=== PATIENT | male | born 1950 | race Caucasian/White ===

== ENCOUNTER 2023-12-03 21:12 | Inpatient (IN) | payer OTHER, SELFPAY ==
[2023-12-03 13:34] VITALS: BP 141/87
[2023-12-03 13:50] LABS: % Basophils 0.7 % (0-2); % Eosinophils 2.3 % (0-6); % Immature Granulocytes 0.4 % (0-0.5); % Lymphocytes 16.5 % (20.5-51.1); % Monocytes 13.7 % (1.7-9.3); % Neutrophils 66.4 % (42.2-75.2); Absolute Basophils 0.1 10^3/uL (0-0.2); Absolute Eosinophils 0.2 10^3/uL (0-0.7); Absolute Lymphocytes 1.2 10^3/uL (1.2-3.4); Hematocrit 38.9 % (39.0-52.0); Hemoglobin 13.3 g/dL (13.0-18.0); Mean Corp Hgb Conc. 34.2 g/dL (33.0-37.0); Mean Corpuscular Hgb 28.6 pg (27.0-31.0); Mean Corpuscular Volume 83.7 fL (80.0-94.0); Mean Platelet Volume 8.8 fL (7.4-10.4); Nucleated Red Blood Cells % 0 % (-); Platelet Count 341 10^3/uL (130-400); Red Blood Cell Count 4.65 10^6/uL (4.70-6.10); Red Cell Dist. Width 13.8 % (11.5-14.5); White Blood Cell Count 7.5 10^3/uL (4.8-10.8)
[2023-12-03 14:11] LABS: ALT (SGPT) 27 U/L (0-50); AST (SGOT) 25 U/L (17-59); Albumin 3.6 g/dl (3.5-5.0); Alkaline Phosphatase 67 U/L (38-126); Blood Urea Nitrogen 18 mg/dl (9-20); Calcium 9.4 mg/dl (8.4-10.2); Carbon Dioxide 24 mmol/L (22-30); Chloride 105 mmol/L (98-107); Glucose 106 mg/dl (70-99); Potassium 4.4 mmol/L (3.5-5.1); Sodium 138 mmol/L (135-145); Total Bilirubin 0.6 mg/dl (0.2-1.3); eGFR > 60.00
--- NOTE | 2023-12-03 17:56 | ED.GENMED ---
History of Present Illness
General
Chief Complaint: Skin Problem
Time Seen by Provider: 12/03/23 17:44
Travel History
Have you had any contact with someone who has COVID-19?: No
Do you have any symptoms of coronavirus? Fever > 100 degrees, chills, cough, shortness of breath, sore throat, loss of taste or smell, muscle aches, or headache?: No
History of Present Illness
History of Present Illness:
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 He had a visiting nurse today
that felt as though his redness and wounds look dramatically worse compared to 1 week prior encouraged him to come to the emergency department. He is completely insensate from the T6 level. Denies any fevers or chills. Has not been on any
antibiotics to this point
Past History
Past History
ED Past Medical History: Other (Paraplegia from T6 down, Cellulitis, Decubitis ulcers, UTI's, kidney stones); Negative HTN, Hypercholesterolemia or IDDM
ED Past Surgical History: Urological (Suprapubic cath) and Other (back surgery sacral muscle flap surgery 2ndary to pressure ulcer)
Social History
Tobacco: Non-smoker
Alcohol: Occasional
Personal:
Living: alone
Employment: Retired
Family History
Family History: Other
Review of Systems
Review of Systems
Allergies reviewed?: Yes
All Other Systems: ROS reviewed and negative except as documented in HPI and ROS
Phy Exam
Physical Exam
Physical Exam:
GEN: Well appearing, NAD, WDWN
HEENT: Oral mucosa moist, no scleral icterus
Cardiac: Regular rate
Lung: No respiratory distress, no tachypnea
MSK: Paraplegic, profound erythema extending across bilateral gluteal region, bilateral superficial gluteal ulcerations, scant purulent discharge, no crepitus or palpable fluctuant abscess
Skin: Good color, no pallor or jaundice, no rashes
Neuro: AO x3, moves all extremities freely
Psych: Calm, cooperative
Course
Orders/Labs/Results
Orders:
Orders
12/03/23 13:40
Complete Blood Count/With Diff Urgent
Comprehensive Metabolic Panel Urgent
12/03/23 17:55
CT Pelvis With Iv Contrast Urgent
Comment:
Reason For Exam: gluteal cellulitis, eval for abscess/Nehemiah's
12/03/23 18:07
Lactic Acid Q4H
Comment: CANCEL 2nd LACTIC ACID IF 1st LACTIC ACID IS LESS THAN 2
Blood Culture Q30M
PAULA Source: Blood/Venous
Specimen Description:
12/03/23 18:34
Blood Culture Q30M
PAULA Source: Blood/Venous
Specimen Description:
12/03/23 19:28
Piperacillin/Tazo 3.375 Gram [Zosyn] 3.375 gram in 50 ml IV NOW
12/03/23 20:00
VANCOMYCIN Pharmacy to Dose [VANCOCIN Pharmacy to Dose] 1 each Pharmacy To Prepare [Call Pharmacy To Prepare] 0 ml IV PER PROTOCOL
12/03/23 22:00
Lactic Acid Q4H
Comment: CANCEL 2nd LACTIC ACID IF 1st LACTIC ACID IS LESS THAN 2
Abnormal Lab Results
12/03/23
13:40
RBC 4.65 L 10^6/uL
(4.70-6.10)
Hct 38.9 L %
(39.0-52.0)
Absolute Monos (auto) 1.0 H 10^3/uL
(0.1-0.6)
Lymphocytes % 16.5 L %
(20.5-51.1)
Monocytes % 13.7 H %
(1.7-9.3)
Creatinine 0.4 L mg/dL
(0.7-1.3)
Glucose 106 H mg/dl
(70-99)
12/03/23 13:40
12/03/23 13:40
Vital Signs
Initial and Last Documented VS:
Initial Vital Signs
Temp Pulse Resp BP Pulse Ox
98.0 F 63 16 141/87 98
12/03/23 13:34 12/03/23 13:34 12/03/23 13:34 12/03/23 13:34 12/03/23 13:34
Last Documented Vital Signs
Temp Pulse Resp BP Pulse Ox
98.0 F 63 16 105/76 99
12/03/23 13:34 12/03/23 13:34 12/03/23 13:34 12/03/23 19:00 12/03/23 20:00
MDM/Problems Addressed
MDM/Problems Addressed:
73-year-old male presents with bilateral gluteal cellulitis. Imaging was obtained given that he is insensate at the T6 level and as a result cannot adequately assess for severe pain to suggest necrotizing soft tissue infection. CT shows no
evidence for gas or drainable abscess. He is afebrile with normal white count however due to the extensive nature of the cellulitis and his complex history will admit for IV antibiotics
*Critical Care Note
Total Time (30-74mins, 75-104mins- exclusive of procedures): Not Applicable
ED Attending Note
-
Portions of this chart may have been created with voice recognition software.� Occasional wrong word or��sound alike� substitutions may have occurred due to the inherent limitations of voice recognition software.
Discharge Plan
Departure
Patient Disposition: Admit
Date of Disposition: 12/03/23
Time of Disposition: 20:12
Presentation/result/management discussed w/ accepting MD/DO: Hospitalist
Discharge Problem:
Cellulitis, gluteal
Prescriptions:
No Action
cholecalciferol (vitamin D3) 2,000 UNITS tablet
2,000 units PO DAILY 0RF
omega 4-dsy-gil-fish oil [Fish Oil] 1 EACH capsule
2 cap PO DAILY
vitamin A 8,000 UNIT capsule
8,000 unit PO DAILY
vitamin E (dl, acetate) 100 UNITS capsule
100 units PO DAILY
vitamin B complex Tablet
1 tab PO DAILY
d-mannose 500 mg Capsule
500 mg PO DAILY
ascorbic acid (vitamin C) [Vitamin C] 500 MG tablet
1,000 mg PO BID
Lactobac/Bifidobac [Visbiome]
1 cap PO DAILY Qty: 0 0RF
warfarin 5 mg tablet
7.5 mg PO QPM
Referrals:
NONE,* [Family Provider] -
Interventions
Interventions:
*ED COVID-19 Vaccine History Last Done: 12/03/23 13:34
ED-Skin Assessment Last Done: 12/03/23 17:55
[2023-12-03 18:08] VITALS: BP 128/77
[2023-12-03 18:31] LABS: Lactic Acid 1.2 mmol/L (0.7-2.0)
[2023-12-03 19:00] VITALS: BP 105/76
[2023-12-03] MEDS: ZOSYN 50 IV (19:56)
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
[2023-12-03 21:02] VITALS: BMI 28.0
[2023-12-03] MEDS: COUMADIN 7.5 MG PO (21:12)
[2023-12-03 21:35] LABS: INR 2.12; PT 24.1 Sec (11.4-14.6)
--- NOTE | 2023-12-03 22:39 | PHA.VAN.IN ---
Addendum entered and electronically signed by Talita Allred RPH 12/04/23 09:08:
Vanc 1000mg Q12H provided the following patient-specific PK:
AUC 372
Cmax: 21.5
Cmin: 10.7
ke: 0.0638
half-life: 10.9 H
Vd: 84 L (0.98 L/kg)
Vanc Cl: 89 ml/min
Levels were drawn appropriately; however, patient had infusion issues for night prior to and night of peak. Night of peak, dose was administered late but level times were appropriately adjusted
Vanc 1250mg Q12H predicted AUC 488, peak 27.8, trough 14.2 based on patient specific PK calculations above
Original Note:
Assessment
- Assessment
Renal Function: Appears similar to baseline
Concomitant Antimicrobials: ZOSYN
- Previous Dosing Experience
Previous Regimen: 1250MG IV Q12H
Date of Regimen: 05/01/23
Provided Trough of: 14.2 PREDICTED
Provided AUC of: 488 PREDICTED
Patient's SCR is: Similar to previous dosing experience
Patient's weight is: Elevated compared to previous dosing experience (05/01/23 WT = 86.1 KG)
AUC Dosing Plan
- Dosing Variables
Dosing Weight (kg): 93.5
Dosing CrCl (ml/min): 100
Vd coefficient (L/kg): 0.7
- Empiric Dosing
Initial / Loading Dose: 2GM
Maintenance Regimen: 1250MG IV Q12H
Estimated AUC (mcg*h/mL): 466
Estimated Peak (mcg*h/mL): 29.4
Estimated Trough (mcg/ml): 11.7
Estimated Half Life (H): 7.9
Pharmacokinetics Vancomycin I
- -
Patient Age: 73
Patient Sex: Male
Vancomycin Day #: 1
Indication: Skin And Soft Tissue (GLUTEAL CELLULITIS)
Requesting Provider: MINOO
Pertinent Antimicrobial Allergies:
Allergies
Sulfa (Sulfonamide Antibiotics) Allergy (Verified 12/03/23 13:36)
Rash / Mouth ulcers
levofloxacin [From Levaquin] Allergy (Verified 12/03/23 13:36)
Unknown
sulfamethoxazole Allergy (Verified 12/03/23 13:36)
Rash / Mouth ulcers
trimethoprim Allergy (Verified 12/03/23 13:36)
Unknown
Height / Weight:
Height 6 ft
Actual Weight 93.5 kg
Pertinent Past Medical History: RECURRENT DECUBS
- Vital Signs / Lab Results
Temp Pulse Resp BP Pulse Ox
98.0 F 63 16 105/76 97
12/03/23 13:34 12/03/23 13:34 12/03/23 13:34 12/03/23 19:00 12/03/23 21:00
Lab Results - Hematology
12/03/23
13:40
WBC 7.5
Lab Results - Chemistry
12/03/23
13:40
BUN 18
Creatinine 0.4 L
Albumin 3.6
12/03/23 12/03/23
18:07 22:00
Lactic Acid 1.2 Cancelled
[2023-12-03 23:46] VITALS: BP 110/60
[2023-12-03] MEDS: VANCOCIN 540 MG IV (23:49)
[2023-12-04] MEDS: TYLENOL PO ×6 (00:06→23:53)
[2023-12-04] MEDS: ZOSYN 50 IV ×4 (02:18→19:44)
[2023-12-04 06:25] LABS: % Basophils 0.7 % (0-2); % Eosinophils 5.2 % (0-6); % Immature Granulocytes 0.2 % (0-0.5); % Lymphocytes 30.3 % (20.5-51.1); % Monocytes 16.5 % (1.7-9.3); % Neutrophils 47.1 % (42.2-75.2); Absolute Eosinophils 0.3 10^3/uL (0-0.7); Absolute Lymphocytes 1.8 10^3/uL (1.2-3.4); Absolute Neutrophils 2.7 10^3/uL (1.4-6.5); Hematocrit 38.6 % (39.0-52.0); Hemoglobin 12.6 g/dL (13.0-18.0); Mean Corp Hgb Conc. 32.6 g/dL (33.0-37.0); Mean Corpuscular Hgb 28.7 pg (27.0-31.0); Mean Corpuscular Volume 87.9 fL (80.0-94.0); Mean Platelet Volume 9.2 fL (7.4-10.4); Nucleated Red Blood Cells % 0 % (-); Platelet Count 346 10^3/uL (130-400); Red Blood Cell Count 4.39 10^6/uL (4.70-6.10); Red Cell Dist. Width 13.5 % (11.5-14.5); White Blood Cell Count 5.8 10^3/uL (4.8-10.8)
[2023-12-04 07:09] LABS: Blood Urea Nitrogen 19 mg/dl (9-20); Calcium 9.2 mg/dl (8.4-10.2); Carbon Dioxide 25 mmol/L (22-30); Chloride 104 mmol/L (98-107); Estimated Creatinine Clearance 122 ml/min; Glucose 102 mg/dl (70-99); Potassium 4.5 mmol/L (3.5-5.1); Sodium 137 mmol/L (135-145); eGFR > 60.00
[2023-12-04] MEDS: B COMPLEX w/VITAMIN C 1 CAPLET PO (08:26)
[2023-12-04] MEDS: VISBIOME 1 CAP PO (08:26)
[2023-12-04] MEDS: VITAMIN D3 (cholecalciferol) 50 MCG PO (08:26)
[2023-12-04 08:35] VITALS: BP 107/57
--- NOTE | 2023-12-04 09:04 | PHA.VAN.FU ---
Vancomycin Assessment / Plan
- Assessment
Renal Function: Stable
WBC's are: WNL
In the past 24 hrs, patient has been: Afebrile
Concomitant Antimicrobials: piperacillin/tazobactam
- Dosing Plan
Continue: Vanc 1250mg Q12H
- Monitoring Plan
No level(s) ordered at this time: consider levels in next few days
- Follow Up
Pharmacy will continue to follow.
Vancomycin Follow UP
- -
Patient Age: 73
Patient Sex: Male
Vancomycin Day #: 2
Indication: Skin And Soft Tissue
Requesting Provider: Virginie Diaz
Pertinent Antimicrobial Allergies:
Sulfa (Sulfonamide Antibiotics) - Rash / Mouth ulcers
levofloxacin - Unknown
sulfamethoxazole / trimethoprim - Rash / Mouth ulcers
Height / Weight:
Height 6 ft
Actual Weight 93.5 kg
Pertinent Past Medical History: Paraplegia
- Vital Signs / Lab Results
Temp Pulse Resp BP Pulse Ox
97.6 F 46 16 107/57 91
12/04/23 08:39 12/04/23 00:03 12/03/23 13:34 12/04/23 08:35 12/04/23 01:47
Lab Results - Hematology
12/03/23 12/04/23
13:40 06:09
WBC 7.5 5.8
Lab Results - Chemistry
12/03/23 12/04/23
13:40 06:09
BUN 18 19
Creatinine 0.4 L 0.5 L
Estimated Creat Clear 122
Albumin 3.6
12/03/23 12/03/23
18:07 22:00
Lactic Acid 1.2 Cancelled
--- NOTE | 2023-12-04 10:36 | CM ---
Patient seen at bedside with physician, PT/OT also present. Patient states that he lives in independent living at [place] and is independent with wheelchair and transfers. Per Patient plan is to return to apartment when medically appropriate. CM
will confirm PCP and follow for PT/OT assessment/recommendations. CM will continue to follow for discharge planning needs.
Plan; return to apartment when medically appropriate at [place].
[2023-12-04 10:45] VITALS: BP 107/57; O2SAT 94
--- NOTE | 2023-12-04 11:00 | CON.PS ---
Medical History
-
Chief Complaint: Pressure Sore
History of Present Illness:
73yoM long history of paraplegia with multiply recurrent pressure sores s/p multiple flap reconstructions.
Presents with cellulitis and skin breakdown
Past Medical History
Past Medical History: Other
Past Surgical History: Other
Allergies / Home Medications
Allergy/AdvReac Type Severity Reaction Status Date / Time
levofloxacin [From Levaquin] Allergy Unknown Verified 12/03/23 13:36
Sulfa (Sulfonamide Allergy Rash / Verified 12/03/23 13:36
Antibiotics) Mouth
ulcers
sulfamethoxazole Allergy Rash / Verified 12/03/23 13:36
Mouth
ulcers
trimethoprim Allergy Unknown Verified 12/03/23 13:36
Medication Instructions Recorded Confirmed Type
cholecalciferol (vitamin D3) 50 2,000 units PO DAILY 11/21/21 12/03/23 Rx
mcg (2,000 unit) tablet
omega 2-jld-fmg-fish oil 300 2 cap PO DAILY High cholesterol 12/14/21 12/03/23 History
mg-1,000 mg capsule (Fish Oil)
vitamin A 2,400 mcg capsule 8,000 unit PO DAILY Supplement 01/31/22 12/03/23 History
vitamin E (dl, acetate) 45 mg (100 100 units PO DAILY Supplement 01/31/22 12/03/23 History
unit) capsule
ascorbic acid (vitamin C) 500 mg 1,000 mg PO BID Supplement 04/27/23 12/03/23 History
tablet (Vitamin C)
d-mannose 500 mg capsule 500 mg PO DAILY Supplement 04/27/23 12/03/23 History
vitamin B complex 1 tab PO DAILY Supplement 04/27/23 12/03/23 History
Lactobac/Bifidobac [Visbiome] 1 cap PO DAILY ##0 05/06/23 12/03/23 Rx
warfarin 5 mg tablet 7.5 mg PO QPM 12/03/23 12/03/23 History
Physical Exam
Vital Signs
Temp 97.7 F 12/04/23 15:30
Temp route: Oral 12/04/23 15:30
Pulse 52 12/04/23 15:30
Resp Rate 16 12/04/23 15:30
Blood pressure 110/65 12/04/23 15:30
Blood pressure extremity used: Right upper arm 12/04/23 13:15
Position: Lying 12/04/23 15:30
MAP (cuff-Stepan Monitor) 74 12/04/23 08:35
SaO2 100 12/04/23 15:30
Oxygen Mode of Delivery Room air 12/04/23 15:30
Pulse Ox at Rest 94 12/04/23 11:33
Can the patient verbally communicate their pain? Yes 12/04/23 14:50
Actual Weight 188 lb 6.4 oz 12/04/23 14:46
Body Mass Index (BMI) 25.6 12/04/23 14:46
Supine- Blood Pressure 107/57 12/04/23 11:33
PEx:
NAD
No increased WOB
gluteal skin with multiple scars, excoriated with superficial breakdown and cellulities
No obvious wound to pack, no grossly exposed bone
Lab Results
12/04/23 06:09
12/04/23 06:09
Assessment / Plan
-
73yoM with paraplegia and multiply recurrent pressure ulcers. He is s/p prior flap reconstructions by Drs. Colbert and Avery in the past.
CT scan shows draining sinus from ischial tuberosity.
Jillian wound with associated excoriation and chronic skin changes with a granulating sinus with surrounding cellulitis
Recommend IV abx and local wound care for presumed osteomyelitis. Pack sinus wet to dry. Follow up at wound care center. Surgical optimization would require evidence of improvement with pressure offloading measures, recent A1C, high protein diet and
treatment of underlying osteo.
Reviewed pressure offloading and specifically, no sitting in the wheelchair for prolonged periods due to the location of his wound.
Discussed surgery, which he would like to avoid at this time, considering he has undergone multiple operations. This makes it particulary challenging to employ typical local flap options.
Data Reviewed
-
CT Scan: Image Personally Visualized and interpreted
[2023-12-04 11:33] VITALS: BP 107/57; O2SAT 94
[2023-12-04] MEDS: VITAMIN C PO (11:33)
[2023-12-04] MEDS: VITAMIN E PO (11:33)
--- NOTE | 2023-12-04 11:39 | WOUNDNOTE ---
R BUTTOCK AND RECTUM
--- NOTE | 2023-12-04 11:40 | WOUNDNOTE ---
SACRUM WITH R BUTTOCK WOUND VISIBLE
--- NOTE | 2023-12-04 11:41 | WOUNDNOTE ---
WON RN note: Patient admitted with gluteal cellulitis.
See H&P for complete history. Lives alone at [facility].
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 Colbert, MRSA infection, repeat L
ischial muscle flap surgery by Dr. Colby Varela from [facility] 2016. Covid 19, anemia.
Wound Location and type/assessment: Patient known to service for healing Stage 4 L ischial PI, R ischium stage 3. Last time patient assessed by wound care was 04/30/23, at that time Ischial wounds closed/healed. Now patient presents with redness and
scattered partial thickness openings on L buttocks/ischium. Did not find any tunnel openings, only shallow openings and scarring. CT of Pelvis showed severe gluteal cellulitis with sinus tract extending toward L ischium and inferior pubic ramus. R
ischial/buttock with reopened stage 3 pressure injury, pink base with antony fibrin. Sacrum is intact. Legs and ankles intact, few dry scabs, heels blanchable pink. Colostomy with pink stoma, larger than last seen. Leroy 2 3/4 2 piece appliances
brought to bedside, patient independent in care, no leakage noted.
Appetite: good.
Pressure redistribution devices in place: [employer] Accumax. Patient has a wheelchair with Roho cushion at bedside. Called [facility] for [facility] care air bed, nurse Víctor aware and will switch to new bed when able. Patient aware of bed switch and
is agreeable. Patient can turn self to side, needs help lifting legs. Pillow placed under calves.
Plan: Discussed findings of the above with Dr. Del Real, defer to Dr. White regarding surgery consult. Bilateral ischial wound care done, hospitalist approved wound care. Pressure ulcer prevention measures discussed with patient, states he understands.
Care plan to be updated and will follow as needed.
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
--- NOTE | 2023-12-04 13:07 | PTCARENOTE ---
Report given to [facility] RN, pt sent with all belongings.
[2023-12-04 13:15] VITALS: BP 158/83
--- NOTE | 2023-12-04 14:30 | WOUNDNOTE ---
DANY RN NOTE: Confirmed patient is on a [facility] air bed. Nurse Antoni stated he is going to assist patient in changing Colostomy appliance. Supplies at bedside.
[2023-12-04 14:46] VITALS: BMI 25.6
[2023-12-04 15:30] VITALS: BP 110/65
[2023-12-04] MEDS: COUMADIN 7.5 MG PO (17:18)
[2023-12-04] MEDS: TYLENOL 650 MG PO (19:43)
[2023-12-04] MEDS: VITAMIN C 1000 MG PO (19:44)
[2023-12-04 23:32] VITALS: BP 106/56
[2023-12-05] MEDS: ZOSYN 50 IV ×3 (01:12→14:58)
[2023-12-05] MEDS: TYLENOL PO ×6 (03:54→23:43)
[2023-12-05] MEDS: VISBIOME 1 CAP PO (07:28)
[2023-12-05] MEDS: VITAMIN D3 (cholecalciferol) 50 MCG PO (07:28)
[2023-12-05] MEDS: VITAMIN C 1000 MG PO ×2 (07:28→19:39)
[2023-12-05] MEDS: B COMPLEX w/VITAMIN C 1 CAPLET PO (07:28)
[2023-12-05 07:35] VITALS: BP 111/54
[2023-12-05 07:51] LABS: % Basophils 0.8 % (0-2); % Eosinophils 4.7 % (0-6); % Immature Granulocytes 0.2 % (0-0.5); % Lymphocytes 24.8 % (20.5-51.1); % Monocytes 15.8 % (1.7-9.3); % Neutrophils 53.7 % (42.2-75.2); Absolute Eosinophils 0.3 10^3/uL (0-0.7); Absolute Lymphocytes 1.3 10^3/uL (1.2-3.4); Absolute Monocytes 0.8 10^3/uL (0.1-0.6); Absolute Neutrophils 2.9 10^3/uL (1.4-6.5); Hematocrit 35.4 % (39.0-52.0); Hemoglobin 11.8 g/dL (13.0-18.0); Mean Corp Hgb Conc. 33.3 g/dL (33.0-37.0); Mean Corpuscular Hgb 28.8 pg (27.0-31.0); Mean Corpuscular Volume 86.3 fL (80.0-94.0); Nucleated Red Blood Cells % 0 % (-); Platelet Count 331 10^3/uL (130-400); Red Cell Dist. Width 13.6 % (11.5-14.5); White Blood Cell Count 5.3 10^3/uL (4.8-10.8)
[2023-12-05 08:51] LABS: Blood Urea Nitrogen 18 mg/dl (9-20); Calcium 8.8 mg/dl (8.4-10.2); Carbon Dioxide 27 mmol/L (22-30); Chloride 102 mmol/L (98-107); Estimated Creatinine Clearance 122 ml/min; Glucose 98 mg/dl (70-99); Magnesium 2.3 mg/dl (1.6-2.3); Potassium 4.6 mmol/L (3.5-5.1); Sodium 137 mmol/L (135-145); eGFR > 60.00
--- NOTE | 2023-12-05 09:30 | WOUNDNOTE ---
DANY RN NOTE: Reviewed Dr. Velasquez's note, patient opted out of surgical intervention, local wound care recommended and offloading. Discussed wounds with Dr. Velasquez and in agreement that no open sinus tract visible, suspects is a pinpoint opening
not yet visible. Patient to follow up at [facility]. Approved continuation of adaptic, abd pad and silicone tape.
[2023-12-05] MEDS: VITAMIN E 100 UNITS PO (10:19)
--- NOTE | 2023-12-05 14:18 | CM ---
Patient seen at bedside with physician. Patient states that he plans to return to his apartment at [place] and has had [facility] in the recent past. He would like to restart with them again when he returns home. Patient has his wheelchair and
transfer board in the room and plans to try to transfer again with therapy later today. CM will continue to follow for discharge planning needs.
Plan; return to apartment at [place] with [facility] [place] watch for possible SNF needs
--- NOTE | 2023-12-05 14:43 | CON.ID ---
Consultation
-
Date/Time Consultation Requested: December 05, 2023 1350
Date/Time Consultation Performed: December 05, 2023 1445
Requesting Provider: Dr. Belen Del Real
Performing Provider: Dr. Flavia Navarro
Reason for Consultation: sacral decubitus
Chief Complaint / Past History
Chief Complaint
Left buttock redness and draining wound
History of Present Illness
History obtained from review medical records as well as from the patient. He is a 73-year-old male with paraplegia since 1973, chronic sacral decubitus status post flap in 2015. In November 2021 he was treated with 6 weeks of IV Zosyn for
osteomyelitis. He was rehospitalized in December 2021 status post diverting colostomy, wound swab with E. coli which eventually became resistant to Zosyn, bone biopsy negative for acute osteomyelitis, tissue culture negative, he was treated with 6
weeks of IV ertapenem followed by flap reconstruction at [facility] summer 2021. Per patient the flap failed. In 2022 he underwent flap surgery again at [facility]. He states bone biopsy at that time negative for osteomyelitis. For the past few days he noted
redness at the left buttock flap site with greenish-yellowish drainage. He therefore came to the ER. No fevers or chills. Pelvic CAT scan showed significant cellulitis, and the previously seen chronic sinus tract extending to the left ischial
tuberosity/inferior pubic ramus. He is currently on Zosyn. He reports the drainage has significantly improved since being in the hospital. Of note he was also on vancomycin but developed itchy rash and therefore discontinued. He had tolerated
vancomycin in the past.
Past History
Additional Past Medical History:
T6 spinal cord injury with paraplegia in 1973
Chronic sacral wound and ischial wound s/p diverting colostomy in December 2021
Chronic suprapubic catheter
DVT left lower extremity April 2022, on Coumadin therapy
Allergy History:
levofloxacin [From Levaquin] Allergy (Verified 12/03/23 13:36)
Unknown
Sulfa (Sulfonamide Antibiotics) Allergy (Verified 12/03/23 13:36)
Rash / Mouth ulcers
sulfamethoxazole Allergy (Verified 12/03/23 13:36)
Rash / Mouth ulcers
trimethoprim Allergy (Verified 12/03/23 13:36)
Unknown
Medications Reviewed: Yes
Current Antibiotics:
Zosyn d2
Social History
Tobacco: Non-Smoker
Alcohol: Daily (1 beer)
Drug: None
Living: Alone ([facility])
Family History
Family History: Not Pertinent
Review of Systems
Review of Systems
General: Negative Fever, Chills or Change in Appetite
HEENT: Negative Headache or Pharyngitis
Cardiovascular: Negative Chest Pain
Respiratory: Negative Dyspnea or Cough
Gasteroenterology: Negative Nausea or Vomiting
Genital / Urological: Negative Flank Pain
Endocrine: Negative Weakness
Neurological: Negative Headache or Dizziness
All systems: All other systems were reviewed and were negative
Vital Signs
Temp Pulse Resp BP Pulse Ox
98.2 F 56 18 111/54 97
12/05/23 07:35 12/05/23 07:35 12/05/23 07:35 12/05/23 07:35 12/05/23 07:35
Physical Exam
Physical Exam
Constitutional: No Acute Distress and Comfortable
Cardiovascular: Regular Rate and S1/S2
Pulmonary: Clear
Gastrointestinal: Soft, Non Tender, Non Distended and Normal Bowel Sounds
Genito-Urinary: Clear Urine (suprapubic catheter); Negative CVA Tenderness
Extremities: Edema
Wound: Other (Left ischium flap intact without large/deep wounds/no tunneling, dressing dry. )
Neurological: AO x 3
Lab / Diagnostic Study Results
12/05/23 07:17
12/05/23 07:17
Abs Immat Gran (auto) 0.0 10^3/uL (0-0.05) 12/05/23 07:17
Absolute Neuts (auto) 2.9 10^3/uL (1.4-6.5) 12/05/23 07:17
Absolute Lymphs (auto) 1.3 10^3/uL (1.2-3.4) 12/05/23 07:17
Absolute Monos (auto) 0.8 10^3/uL (0.1-0.6) H 12/05/23 07:17
Absolute Basos (auto) 0.0 10^3/uL (0-0.2) 12/05/23 07:17
Immature Gran % 0.2 % (0-0.5) 12/05/23 07:17
Neutrophils % 53.7 % (42.2-75.2) 12/05/23 07:17
Lymphocytes % 24.8 % (20.5-51.1) 12/05/23 07:17
Monocytes % 15.8 % (1.7-9.3) H 12/05/23 07:17
Eosinophils % 4.7 % (0-6) 12/05/23 07:17
Basophils % 0.8 % (0-2) 12/05/23 07:17
PT 24.1 Sec (11.4-14.6) H 12/03/23 21:09
INR 2.12 12/03/23 21:09
Lactic Acid Cancelled 12/03/23 22:00
Microbiology Results
Micro:
12/03/23 21:30 Wound Culture - Preliminary
Buttock Gram negative bacilli
Gram Stain - Preliminary
12/03/23 18:34 Blood Culture - Preliminary
Blood/Venous No Growth in 24 hours- Final report to follow
12/03/23 18:07 Blood Culture - Preliminary
Blood/Venous No Growth in 24 hours- Final report to follow
12/04/23 16:16 MRSA Screen - Pending
Nose
12/03/[address]: Severe gluteal cellulitis. Large sacral decubitus ulceration with a sinus tract that again extends towards the left ischial tuberosity/inferior pubic ramus, similar to prior. No new drainable fluid collection/abscess. No soft
tissue gas to suggest a necrotizing soft tissue infection.
Assessment / Plan
# Paraplegia with chronic left sacral decubitus s/p 6 weeks of IV abx twice in 2021 followed by flap 2021 (failed) and 2022
# Left ischium flap cellulitis
# CT pelvis shows chronic stable sinus tract to left ischial tuberosity
- Suspect cellulitis over acute osteo.
No deep wounds on exam. Flap is intact.
- Discussed with patient regarding short course abx versus 6 weeks IV abx.
To avoid potential flap breakdown, pt prefers to treat more aggressively with 6 weeks of IV abx.
-Replace Zosyn with Meropenem for now based on prior wound cultures.
[2023-12-05 15:30] VITALS: BP 138/73
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
[2023-12-05] MEDS: COUMADIN 7.5 MG PO (17:07)
[2023-12-05 17:35] VITALS: BMI 25.6
[2023-12-05 23:00] VITALS: BP 101/69
[2023-12-05] MEDS: STERILE WATER FOR INJECTION 10 ML IV (23:34)
[2023-12-05] MEDS: MERREM 500 MG IV (23:41)
[2023-12-06] MEDS: TYLENOL PO ×6 (03:05→23:13)
[2023-12-06] MEDS: STERILE WATER FOR INJECTION 10 ML IV ×4 (05:12→23:16)
[2023-12-06] MEDS: MERREM 500 MG IV ×4 (05:13→23:17)
[2023-12-06 07:30] VITALS: BP 118/63
[2023-12-06 08:37] LABS: % Basophils 0.9 % (0-2); % Eosinophils 4.8 % (0-6); % Immature Granulocytes 0.2 % (0-0.5); % Lymphocytes 25.4 % (20.5-51.1); % Monocytes 16.5 % (1.7-9.3); % Neutrophils 52.2 % (42.2-75.2); Absolute Basophils 0.1 10^3/uL (0-0.2); Absolute Eosinophils 0.3 10^3/uL (0-0.7); Absolute Lymphocytes 1.4 10^3/uL (1.2-3.4); Absolute Monocytes 0.9 10^3/uL (0.1-0.6); Absolute Neutrophils 2.8 10^3/uL (1.4-6.5); Hematocrit 36.5 % (39.0-52.0); Mean Corp Hgb Conc. 32.9 g/dL (33.0-37.0); Mean Corpuscular Volume 88.2 fL (80.0-94.0); Mean Platelet Volume 9.2 fL (7.4-10.4); Nucleated Red Blood Cells % 0 % (-); Platelet Count 315 10^3/uL (130-400); Red Blood Cell Count 4.14 10^6/uL (4.70-6.10); Red Cell Dist. Width 13.6 % (11.5-14.5); White Blood Cell Count 5.4 10^3/uL (4.8-10.8)
[2023-12-06 08:46] LABS: INR 2.83; PT 30.2 Sec (11.4-14.6)
[2023-12-06] MEDS: VITAMIN E 100 UNITS PO (08:47)
[2023-12-06] MEDS: VITAMIN D3 (cholecalciferol) 50 MCG PO (08:47)
[2023-12-06] MEDS: VITAMIN C 1000 MG PO ×2 (08:47→20:03)
[2023-12-06] MEDS: B COMPLEX w/VITAMIN C 1 CAPLET PO (08:47)
[2023-12-06] MEDS: VISBIOME 1 CAP PO (08:47)
[2023-12-06 09:05] LABS: Blood Urea Nitrogen 17 mg/dl (9-20); Calcium 8.8 mg/dl (8.4-10.2); Carbon Dioxide 28 mmol/L (22-30); Chloride 106 mmol/L (98-107); Estimated Creatinine Clearance 122 ml/min; Glucose 92 mg/dl (70-99); Potassium 4.7 mmol/L (3.5-5.1); Sodium 137 mmol/L (135-145); eGFR > 60.00
[2023-12-06 09:24] LABS: Magnesium 2.3 mg/dl (1.6-2.3)
--- NOTE | 2023-12-06 11:01 | W.PN.ID1 ---
Date of Service
Date of Service: December 06, 2023
Today's Communication
Await cx.
Continue meropenem for now.
Assessment / Plan
# Paraplegia with chronic left sacral decubitus s/p 6 weeks of IV abx twice in 2021 followed by flap 2021 (failed) and 2022
# Left ischium flap cellulitis
# CT pelvis shows chronic stable sinus tract to left ischial tuberosity
- Suspect cellulitis over acute osteo.
No deep wounds on exam. Flap is intact.
- Discussed with patient regarding short course abx versus 6 weeks IV abx.
- Awaiting wound cx to guide therapy. Prelim cx: GNR, S. aureus, Group G strep, diphtheroids
-Continue Meropenem for now based on prior wound cultures.
Additional Past Medical History:
T6 spinal cord injury with paraplegia in 1973
Chronic sacral wound and ischial wound s/p diverting colostomy in December 2021, multiple flaps, last on 2022 at [facility]
Chronic suprapubic catheter
DVT left lower extremity April 2022, on Coumadin therapy
Chief Complaint
-: Cellulitis
Subjective / Review of Systems
No new complaints.
Vital Signs / Physical Exam
Vital Signs
Vital Signs
Temp Pulse Resp BP Pulse Ox
97.6 F 63 16 118/63 97
12/06/23 07:30 12/06/23 07:30 12/06/23 07:30 12/06/23 07:30 12/06/23 08:37
Physical Exam
Constitutional: No Acute Distress
Pulmonary: Clear
Gastrointestinal: Non Tender and Non Distended
Neurological: AO x 3
Objective Data
Lab Data
Lab Results
12/06/23 07:26
12/06/23 07:26
PT 30.2 Sec (11.4-14.6) H 02/01/24 07:26
INR 2.83 12/06/23 07:26
Estimated Creat Clear 122 ml/min 12/06/23 07:26
Lactic Acid Cancelled 12/03/23 22:00
Total Bilirubin 0.6 mg/dl (0.2-1.3) 12/03/23 13:40
AST 25 U/L (17-59) 12/03/23 13:40
ALT 27 U/L (0-50) 12/03/23 13:40
Alkaline Phosphatase 67 U/L (38-126) 12/03/23 13:40
Most recent labs reviewed.
Micro Results:
12/03/23 21:30 Wound Culture - Preliminary
Buttock Gram negative bacilli
Staphylococcus aureus
Group G Streptococcus
Gram Stain - Preliminary
12/04/23 16:16 MRSA Screen - Final
Nose No Methicillin Resistant Staphylococcus aureus isolated.
12/03/23 18:34 Blood Culture - Preliminary
Blood/Venous No Growth in 48 hours- Final report to follow
12/03/23 18:07 Blood Culture - Preliminary
Blood/Venous No Growth in 48 hours- Final report to follow
12/03/[address]: Severe gluteal cellulitis. Large sacral decubitus ulceration with a sinus tract that again extends towards the left ischial tuberosity/inferior pubic ramus, similar to prior. No new drainable fluid collection/abscess. No soft
tissue gas to suggest a necrotizing soft tissue infection.
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
--- NOTE | 2023-12-06 14:33 | CM ---
Patient seen at bedside with physician. Patient for possible SNF: [facility] pending confirmation of IV antibiotic program by ID/Hospitalist. CM will continue to follow for discharge planning needs.
Plan; SNF; when medically appropriate, pending ID recommendations
[2023-12-06 15:30] VITALS: BP 150/88
[2023-12-06] MEDS: COUMADIN 7.5 MG PO (17:19)
[2023-12-07 00:02] VITALS: BP 135/74
[2023-12-07] MEDS: TYLENOL PO ×3 (03:04→15:19)
[2023-12-07] MEDS: STERILE WATER FOR INJECTION 10 ML IV ×2 (05:52→12:33)
[2023-12-07] MEDS: MERREM 500 MG IV (05:53)
[2023-12-07 07:25] VITALS: BP 109/69
[2023-12-07] MEDS: B COMPLEX w/VITAMIN C 1 CAPLET PO (09:00)
[2023-12-07] MEDS: TYLENOL 650 MG PO (09:00)
[2023-12-07] MEDS: VITAMIN C 1000 MG PO (09:00)
[2023-12-07] MEDS: VISBIOME 1 CAP PO (09:00)
[2023-12-07] MEDS: VITAMIN E 100 UNITS PO (09:00)
[2023-12-07] MEDS: VITAMIN D3 (cholecalciferol) 50 MCG PO (09:00)
[2023-12-07 09:04] LABS: Hematocrit 40.2 % (39.0-52.0); Mean Corp Hgb Conc. 32.3 g/dL (33.0-37.0); Mean Corpuscular Hgb 28.8 pg (27.0-31.0); Mean Corpuscular Volume 88.9 fL (80.0-94.0); Mean Platelet Volume 9.2 fL (7.4-10.4); Platelet Count 361 10^3/uL (130-400); Red Blood Cell Count 4.52 10^6/uL (4.70-6.10); Red Cell Dist. Width 13.5 % (11.5-14.5); White Blood Cell Count 5.9 10^3/uL (4.8-10.8)
[2023-12-07 09:08] LABS: INR 2.59; PT 27.7 Sec (11.4-14.6)
--- NOTE | 2023-12-07 10:16 | W.PN.ID1 ---
Date of Service
Date of Service: December 07, 2023
Today's Communication
See below.
Assessment / Plan
# Paraplegia with chronic left sacral decubitus s/p 6 weeks of IV abx twice in 2021 followed by flap 2021 (failed) and 2022
# Left ischium flap cellulitis
# CT pelvis shows chronic stable sinus tract to left ischial tuberosity
- Suspect cellulitis over acute osteo.
No deep wounds on exam. Flap is intact.
Per Plastic - may be start of osteomyelitis
- Wound cx: MSSA, Group G strep, Acinetobacter, diphtheroids
- Discussed with patient. Will treat with 6 weeks of IV abx. Patient will also receive better wound care at [facility].
- Narrow meropenem to cefepime 2gIV q12h x 6 weeks through 01/14/24.
- Ordered PICC.
-Follow weekly CBC with diff, CMP, CRP.
#Additional Past Medical History:
T6 spinal cord injury with paraplegia in 1973
Chronic sacral wound and ischial wound s/p diverting colostomy in December 2021, multiple flaps, last on 2022 at [facility]
Chronic suprapubic catheter
DVT left lower extremity April 2022, on Coumadin therapy
Chief Complaint
-: Cellulitis
Subjective / Review of Systems
Doing well.
Vital Signs / Physical Exam
Vital Signs
Vital Signs
Temp Pulse Resp BP Pulse Ox
97.4 F 75 18 109/69 98
12/07/23 07:25 12/07/23 07:25 12/07/23 07:25 12/07/23 07:25 12/07/23 07:25
Physical Exam
Constitutional: No Acute Distress and Comfortable
Pulmonary: Clear
Genito-Urinary: Kay and Clear Urine
Wound: Other (left ischium erythema decreased, no drainage)
Neurological: AO x 3
Objective Data
Lab Data
Lab Results
12/07/23 08:14
12/06/23 07:26
PT 27.7 Sec (11.4-14.6) H 12/07/23 08:14
INR 2.59 12/07/23 08:14
Estimated Creat Clear 122 ml/min 12/06/23 07:26
Lactic Acid Cancelled 12/03/23 22:00
Total Bilirubin 0.6 mg/dl (0.2-1.3) 12/03/23 13:40
AST 25 U/L (17-59) 12/03/23 13:40
ALT 27 U/L (0-50) 12/03/23 13:40
Alkaline Phosphatase 67 U/L (38-126) 12/03/23 13:40
Most recent labs reviewed.
Micro Results:
12/03/23 21:30 Wound Culture - Final
Buttock Acinet. baumannii/haemolyticus
S aureus-Methicillin Sensitive
Group G Streptococcus
Gram Stain - Final
12/03/23 18:34 Blood Culture - Preliminary
Blood/Venous No Growth in 72 hours- Final report to follow
12/03/23 18:07 Blood Culture - Preliminary
Blood/Venous No Growth in 72 hours- Final report to follow
12/04/23 16:16 MRSA Screen - Final
Nose No Methicillin Resistant Staphylococcus aureus isolated.
12/03/[address]: Severe gluteal cellulitis. Large sacral decubitus ulceration with a sinus tract that again extends towards the left ischial tuberosity/inferior pubic ramus, similar to prior. No new drainable fluid collection/abscess. No soft
tissue gas to suggest a necrotizing soft tissue infection.
Care Review
Plan reviewed with: Physician (Dr. Del Real)
--- NOTE | 2023-12-07 11:02 | CM ---
Addendum entered by Kenzie Farris 12/07/23 13:09:
please call report to [phone]/ fax [phone]. [facility] completed and transportation forms to be sent to floor. CM sent IV antibiotic form to SNF. CM will continue to follow for discharge planning needs.
Original Note:
Patient for SNF placement at [facility] for IV antibiotics. spoke with [facility] automobile rental representative and called and left daniela Felix at [facility] to request call and report numbers. CM will continue to follow for discharge planning needs.
Plan; [facility] for IV antibiotics and ambulance transportation due to paraplegia. awaiting auth
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
[2023-12-07] MEDS: MAXIPIME 2000 MG IV (12:33)
--- NOTE | 2023-12-07 14:03 | W.DCSUMMARY ---
Discharge Summary
Discharge Data
Date of Admission: 12/03/23
Date of Discharge: 12/07/23
-
Pending Results: No
Hospital Course
Primary care physician : Vincenzo Carmona
Principal Discharge diagnosis : Gluteal cellulitis with large sacral decubitus ulcer
Chronic Discharge diagnosis : T6 paraplegia, chronic suprapubic catheter, deep venous thrombosis in the left lower extremity in April 2023, history of Wenckebach with ventricular escape beats, obesity due to excess calories
Hospital Course : Patient is a 73-year-old male with worsening redness to a chronic gluteal sacral wound. He had a visiting nurse that sent him to the ED because the wound looked worse compared to a week prior. Patient reported increased redness
and drainage with foul odor. He denied fevers, chills, chest pain, or any other symptoms. He also has no pain as he has no sensation from the T6 spinal cord injury. Patient was admitted.
Problem #1: Gluteal cellulitis with large sacral decubitus ulcer. CAT scan done in the emergency room shows severe gluteal cellulitis with a large sacral decubitus ulcer and sinus tract extending towards the left ischial tuberosity/inferior pubic
ramus patient was admitted and seen in consultation by plastic surgery. There were no plans for any further surgical management. He should follow-up with the wound care center at discharge. He was placed on vancomycin and Zosyn. Vancomycin was
stopped due to possible reaction of having itchiness and hives. ID was consulted and based on the culture which showed methicillin sensitive staphylococcal aureus, group G strep, Acinetobacter and diphtheroids he was changed to meropenem and then
to cefepime. He will complete 6 weeks of IV cefepime through January 14, 2024. PICC line has been ordered. He should follow-up as directed.
Problem #2: All other medical issues. These include T6 paraplegia, chronic suprapubic catheter, deep venous thrombosis in the left lower extremity in April 2023, history of Wenckebach with ventricular escape beats, obesity due to excess calories.
These medical issues were stable during his hospitalization. Medications were continued as able.
Patient is stable for discharge to [facility] given the fact that he needs 6 weeks of IV antibiotics. If there are any questions regarding this dictation or his hospital stay, please not hesitate to call. Our office number is [phone].
Time for discharge 37 minutes.
Important imaging findings :
PELVIS IMPRESSION:
Severe gluteal cellulitis. Large sacral decubitus ulceration with a sinus tract that again extends towards the left ischial tuberosity/inferior pubic ramus, similar to prior. No new drainable fluid collection/abscess. No soft tissue gas to suggest a
necrotizing soft tissue infection.
Discharge Plan
-
Patient Disposition: Long Term/SNF
Discharge Diagnosis/Procedures: Gluteal cellulitis with large sacral decubitus ulcer, T6 paraplegia present on admission, chronic suprapubic catheter present on admission, DVT left lower extremity in April 2023, history of Wenckebach with ventricular
escape beats, obesity due to excess calorie consumption
Condition: Good
Diet: As tolerated and Regular
Activity: As tolerated
Additional Activity: Offload sacral decubitus ulcer/cellulitis as best you can
Driving Restrictions: As prior to admission
Bathing Restrictions: None
Blood Work: Needs weekly CBC with differential, complete metabolic profile, CRP with results to Dr. Navarro-ID
Activity Restrictions/Additional Instructions:
Wound Care Instructions
L buttock/ischium: clean with soap and water, adaptic, ABD pad and silicone tape or silicone foam, change daily and prn soilage
R buttock/ischium: clean with soap and water, cut piece of [place] roll to base of open wound, cover with silicone foam or gauze, change daily and prn soilage.
Frequent turning while in bed
ROHO cushion when sitting in wheelchair, limit sitting for 1-2 hrs a day.
Increase protein in diet
Follow up at wound care center call for an appointment.
Referrals:
Vincenzo Carmona MD [Active] - in less than 1 week
Flavia Navarro MD [Active] - in two to four weeks
Prescriptions:
New
cefepime 2 gram Recon Soln
2,000 mg IV Q12H Qty: 0 0RF
Rx Instructions:
Continue through January 14, 2024
Continued
cholecalciferol (vitamin D3) 2,000 UNITS tablet
2,000 units PO DAILY 0RF
omega 9-wse-gve-fish oil [Fish Oil] 1 EACH capsule
2 cap PO DAILY
vitamin A 8,000 UNIT capsule
8,000 unit PO DAILY
vitamin E (dl, acetate) 100 UNITS capsule
100 units PO DAILY
vitamin B complex Tablet
1 tab PO DAILY
d-mannose 500 mg Capsule
500 mg PO DAILY
ascorbic acid (vitamin C) [Vitamin C] 500 MG tablet
1,000 mg PO BID
Lactobac/Bifidobac [Visbiome]
1 cap PO DAILY Qty: 0 0RF
warfarin 5 mg tablet
7.5 mg PO QPM
Discharge Orders:
Discharge Patient (As Directed); Ordered 12/07/23
Ordered By: Destinee Del Real
[2023-12-07 15:19] VITALS: BP 111/63
[2023-12-07] MEDS: COUMADIN 7.5 MG PO (17:29)
== END 2023-12-07 18:49 | DRG 602 ==
LOC: 4 WEST ACU 21:12
PROVIDERS: Clinical Nurse Specialist Family Health; Emergency Medicine; Physician Assistant; ADMITTING PHYSICIAN Hospitalist; ATTENDING PHYSICIAN Internal Medicine; CONSULT PHYSICIAN Surgery Plastic and Reconstructive Surgery; EMERGENCY PHYSICIAN Emergency Medicine; OTHER PHYSICIAN Internal Medicine Infectious Disease
DX: L03.317 Cellulitis of buttock (principal); L89.154 Pressure ulcer of sacral region, stage 4; L89.313 Pressure ulcer of right buttock, stage 3; L89.324 Pressure ulcer of left buttock, stage 4; G82.20 Paraplegia, unspecified; E66.09 Other obesity due to excess calories; Z66 Do not resuscitate; Z79.01 Long term (current) use of anticoagulants; Z93.59 Other cystostomy status; Z68.25 Body mass index [BMI] 25.0-25.9, adult; Z93.3 Colostomy status
CPT/HCPCS: 71045; 72193; 80048; 80053; 83605; 83735; 85025; 85027; 85610; 87040; 87070; 87077; 87147; 87186; 87205; 96365; 97166; 99285; Q9967

== ENCOUNTER → 2023-12-11 09:39 | Outpatient (REF) | payer OTHER, SELFPAY ==
[2023-12-11 10:27] LABS: % Eosinophils 7.9 % (0-6); % Immature Granulocytes 0.2 % (0-0.5); % Lymphocytes 38.5 % (20.5-51.1); % Neutrophils 39.4 % (42.2-75.2); Absolute Basophils 0.1 10^3/uL (0-0.2); Absolute Eosinophils 0.4 10^3/uL (0-0.7); Absolute Monocytes 0.7 10^3/uL (0.1-0.6); Hematocrit 34.4 % (39.0-52.0); Hemoglobin 11.6 g/dL (13.0-18.0); Mean Corp Hgb Conc. 33.7 g/dL (33.0-37.0); Mean Corpuscular Hgb 28.9 pg (27.0-31.0); Mean Corpuscular Volume 85.6 fL (80.0-94.0); Mean Platelet Volume 9.4 fL (7.4-10.4); Nucleated Red Blood Cells % 0 % (-); Platelet Count 294 10^3/uL (130-400); Red Blood Cell Count 4.02 10^6/uL (4.70-6.10); Red Cell Dist. Width 13.7 % (11.5-14.5); White Blood Cell Count 5.1 10^3/uL (4.8-10.8)
[2023-12-11 10:43] LABS: ALT (SGPT) 26 U/L (0-50); AST (SGOT) 24 U/L (17-59); Albumin 3.3 g/dl (3.5-5.0); Alkaline Phosphatase 69 U/L (38-126); Blood Urea Nitrogen 20 mg/dl (9-20); Calcium 8.6 mg/dl (8.4-10.2); Carbon Dioxide 25 mmol/L (22-30); Chloride 108 mmol/L (98-107); Glucose 90 mg/dl (70-99); Potassium 4.7 mmol/L (3.5-5.1); Sodium 135 mmol/L (135-145); Total Bilirubin 0.4 mg/dl (0.2-1.3); Total Protein 6.4 g/dl (6.3-8.2); eGFR > 60.00
[2023-12-11 10:48] LABS: INR 2.05
== END ==
LOC: OLABWHC 09:39
PROVIDERS: ATTENDING PHYSICIAN Family Medicine
DX: L89.159 Pressure ulcer of sacral region, unspecified stage (principal); L03.317 Cellulitis of buttock; Z79.2 Long term (current) use of antibiotics
CPT/HCPCS: 36415; 80053; 85025; 85610; 86140

== ENCOUNTER → 2023-12-18 09:54 | Outpatient (REF) | payer OTHER, SELFPAY ==
[2023-12-18 11:09] LABS: INR 1.78; PT 20.5 Sec (11.4-14.6)
[2023-12-18 11:40] LABS: ALT (SGPT) 31 U/L (0-50); AST (SGOT) 29 U/L (17-59); Albumin 3.4 g/dl (3.5-5.0); Alkaline Phosphatase 67 U/L (38-126); Blood Urea Nitrogen 20 mg/dl (9-20); Calcium 9.3 mg/dl (8.4-10.2); Carbon Dioxide 25 mmol/L (22-30); Chloride 104 mmol/L (98-107); Glucose 101 mg/dl (70-99); Potassium 4.8 mmol/L (3.5-5.1); Sodium 136 mmol/L (135-145); Total Bilirubin 0.5 mg/dl (0.2-1.3); Total Protein 6.7 g/dl (6.3-8.2); eGFR > 60.00
== END ==
LOC: OLABWHC 09:54
PROVIDERS: ATTENDING PHYSICIAN Family Medicine
DX: I82.402 Acute embolism and thrombosis of unspecified deep veins of left lower extremity (principal); Z79.01 Long term (current) use of anticoagulants
CPT/HCPCS: 36415; 80053; 85610; 86140

== ENCOUNTER → 2023-12-21 08:49 | Outpatient (REF) | payer OTHER, SELFPAY ==
[2023-12-21 09:22] LABS: INR 2.52; PT 27.1 Sec (11.4-14.6)
== END ==
LOC: OLABWHC 08:49
PROVIDERS: ATTENDING PHYSICIAN Family Medicine
DX: I82.402 Acute embolism and thrombosis of unspecified deep veins of left lower extremity (principal); Z79.01 Long term (current) use of anticoagulants
CPT/HCPCS: 36415; 85610

== ENCOUNTER → 2023-12-24 09:52 | Outpatient (REF) | payer OTHER, SELFPAY ==
[2023-12-24 10:21] LABS: % Basophils 0.8 % (0-2); % Eosinophils 5.5 % (0-6); % Immature Granulocytes 0.2 % (0-0.5); % Lymphocytes 32.2 % (20.5-51.1); % Monocytes 13.5 % (1.7-9.3); % Neutrophils 47.8 % (42.2-75.2); Absolute Eosinophils 0.3 10^3/uL (0-0.7); Absolute Lymphocytes 1.6 10^3/uL (1.2-3.4); Absolute Monocytes 0.7 10^3/uL (0.1-0.6); Absolute Neutrophils 2.3 10^3/uL (1.4-6.5); Hematocrit 38.4 % (39.0-52.0); Hemoglobin 12.6 g/dL (13.0-18.0); Mean Corp Hgb Conc. 32.8 g/dL (33.0-37.0); Mean Corpuscular Hgb 28.7 pg (27.0-31.0); Mean Corpuscular Volume 87.5 fL (80.0-94.0); Nucleated Red Blood Cells % 0 % (-); Platelet Count 231 10^3/uL (130-400); Red Blood Cell Count 4.39 10^6/uL (4.70-6.10); Red Cell Dist. Width 14.3 % (11.5-14.5); White Blood Cell Count 4.9 10^3/uL (4.8-10.8)
[2023-12-24 10:32] LABS: ALT (SGPT) 48 U/L (0-50); AST (SGOT) 33 U/L (17-59); Albumin 3.6 g/dl (3.5-5.0); Alkaline Phosphatase 68 U/L (38-126); Blood Urea Nitrogen 23 mg/dl (9-20); Calcium 9.5 mg/dl (8.4-10.2); Carbon Dioxide 26 mmol/L (22-30); Chloride 102 mmol/L (98-107); Glucose 97 mg/dl (70-99); Potassium 4.7 mmol/L (3.5-5.1); Sodium 136 mmol/L (135-145); Total Bilirubin 0.5 mg/dl (0.2-1.3); Total Protein 6.8 g/dl (6.3-8.2); eGFR > 60.00
[2023-12-26 12:47] LABS: CRP, Highly Sensitive 2.66 mg/L
== END ==
LOC: OLABWHC 09:52
PROVIDERS: ATTENDING PHYSICIAN Family Medicine
DX: L89.320 Pressure ulcer of left buttock, unstageable (principal); N31.9 Neuromuscular dysfunction of bladder, unspecified; L03.317 Cellulitis of buttock; D64.9 Anemia, unspecified
CPT/HCPCS: 36415; 80053; 85025; 86141

== ENCOUNTER → 2023-12-28 08:59 | Outpatient (REF) | payer OTHER, SELFPAY ==
[2023-12-28 09:31] LABS: INR 3.45; PT 34.8 Sec (11.4-14.6)
== END ==
LOC: OLABWHC 08:59
PROVIDERS: ATTENDING PHYSICIAN Family Medicine
DX: Z79.01 Long term (current) use of anticoagulants (principal)
CPT/HCPCS: 36415; 85610

== ENCOUNTER → 2023-12-31 10:28 | Outpatient (REF) | payer OTHER, SELFPAY ==
[2023-12-31 12:58] LABS: % Basophils 0.9 % (0-2); % Eosinophils 5.3 % (0-6); % Immature Granulocytes 0.2 % (0-0.5); % Lymphocytes 35.2 % (20.5-51.1); % Monocytes 15.4 % (1.7-9.3); Absolute Basophils 0.1 10^3/uL (0-0.2); Absolute Eosinophils 0.3 10^3/uL (0-0.7); Absolute Lymphocytes 1.9 10^3/uL (1.2-3.4); Absolute Monocytes 0.8 10^3/uL (0.1-0.6); Absolute Neutrophils 2.3 10^3/uL (1.4-6.5); Hematocrit 38.1 % (39.0-52.0); Mean Corp Hgb Conc. 34.1 g/dL (33.0-37.0); Mean Corpuscular Hgb 28.7 pg (27.0-31.0); Mean Corpuscular Volume 84.1 fL (80.0-94.0); Mean Platelet Volume 11.8 fL (7.4-10.4); Nucleated Red Blood Cells % 0 % (-); Platelet Count 202 10^3/uL (130-400); Red Blood Cell Count 4.53 10^6/uL (4.70-6.10); Red Cell Dist. Width 14.6 % (11.5-14.5); White Blood Cell Count 5.3 10^3/uL (4.8-10.8)
[2023-12-31 13:27] LABS: ALT (SGPT) 61 U/L (0-50); AST (SGOT) 40 U/L (17-59); Albumin 3.9 g/dl (3.5-5.0); Alkaline Phosphatase 73 U/L (38-126); Blood Urea Nitrogen 18 mg/dl (9-20); Calcium 9.2 mg/dl (8.4-10.2); Carbon Dioxide 24 mmol/L (22-30); Chloride 106 mmol/L (98-107); Glucose 89 mg/dl (70-99); Potassium 5.4 mmol/L (3.5-5.1); Sodium 136 mmol/L (135-145); Total Bilirubin 0.5 mg/dl (0.2-1.3); Total Protein 7.1 g/dl (6.3-8.2); eGFR > 60.00
== END ==
LOC: OLABWHC 10:28
PROVIDERS: ATTENDING PHYSICIAN Family Medicine
DX: L03.317 Cellulitis of buttock (principal); Z79.2 Long term (current) use of antibiotics; M86.68 Other chronic osteomyelitis, other site; D64.9 Anemia, unspecified
CPT/HCPCS: 36415; 80053; 85025; 86140

== ENCOUNTER → 2024-01-02 09:28 | Outpatient (REF) | payer OTHER, SELFPAY ==
[2024-01-02 10:04] LABS: INR 2.15; PT 24.3 Sec (11.4-14.6)
== END ==
LOC: OLABWHC 09:28
PROVIDERS: ATTENDING PHYSICIAN Family Medicine
DX: Z79.01 Long term (current) use of anticoagulants (principal); I82.402 Acute embolism and thrombosis of unspecified deep veins of left lower extremity
CPT/HCPCS: 36415; 85610

== ENCOUNTER → 2024-01-04 09:01 | Outpatient (REF) | payer OTHER, SELFPAY ==
[2024-01-04 10:14] LABS: INR 2.34; PT 25.6 Sec (11.4-14.6)
== END ==
LOC: OLABWHC 09:01
PROVIDERS: ATTENDING PHYSICIAN Family Medicine
DX: Z79.01 Long term (current) use of anticoagulants (principal); I82.402 Acute embolism and thrombosis of unspecified deep veins of left lower extremity
CPT/HCPCS: 36415; 85610

== ENCOUNTER → 2024-01-07 09:02 | Outpatient (REF) | payer OTHER, SELFPAY ==
[2024-01-07 10:55] LABS: INR 2.63
[2024-01-07 11:00] LABS: ALT (SGPT) 63 U/L (0-50); AST (SGOT) 34 U/L (17-59); Alkaline Phosphatase 69 U/L (38-126); Blood Urea Nitrogen 20 mg/dl (9-20); Calcium 9.2 mg/dl (8.4-10.2); Carbon Dioxide 26 mmol/L (22-30); Chloride 106 mmol/L (98-107); Glucose 92 mg/dl (70-99); Potassium 5.2 mmol/L (3.5-5.1); Sodium 137 mmol/L (135-145); Total Bilirubin 0.5 mg/dl (0.2-1.3); eGFR > 60.00
[2024-01-07 11:10] LABS: % Basophils 0.5 % (0-2); % Eosinophils 5.2 % (0-6); % Immature Granulocytes 0.2 % (0-0.5); % Lymphocytes 33.8 % (20.5-51.1); % Neutrophils 47.3 % (42.2-75.2); Absolute Eosinophils 0.3 10^3/uL (0-0.7); Absolute Lymphocytes 1.9 10^3/uL (1.2-3.4); Absolute Monocytes 0.7 10^3/uL (0.1-0.6); Absolute Neutrophils 2.7 10^3/uL (1.4-6.5); Hematocrit 38.8 % (39.0-52.0); Hemoglobin 12.7 g/dL (13.0-18.0); Mean Corp Hgb Conc. 32.7 g/dL (33.0-37.0); Mean Corpuscular Hgb 28.7 pg (27.0-31.0); Mean Corpuscular Volume 87.6 fL (80.0-94.0); Mean Platelet Volume 10.2 fL (7.4-10.4); Nucleated Red Blood Cells % 0 % (-); Platelet Count 226 10^3/uL (130-400); Red Blood Cell Count 4.43 10^6/uL (4.70-6.10); Red Cell Dist. Width 14.7 % (11.5-14.5); White Blood Cell Count 5.6 10^3/uL (4.8-10.8)
== END ==
LOC: OLABWHC 09:02
PROVIDERS: ATTENDING PHYSICIAN Family Medicine
DX: D64.9 Anemia, unspecified (principal); I82.402 Acute embolism and thrombosis of unspecified deep veins of left lower extremity; I44.1 Atrioventricular block, second degree; L03.317 Cellulitis of buttock; M86.68 Other chronic osteomyelitis, other site; D62 Acute posthemorrhagic anemia
CPT/HCPCS: 36415; 80053; 85025; 85610; 86140

== ENCOUNTER → 2024-01-11 09:05 | Outpatient (REF) | payer OTHER, SELFPAY ==
[2024-01-11 10:39] LABS: INR 2.33; PT 25.5 Sec (11.4-14.6)
== END ==
LOC: OLABWHC 09:05
PROVIDERS: ATTENDING PHYSICIAN Family Medicine
DX: I82.402 Acute embolism and thrombosis of unspecified deep veins of left lower extremity (principal); Z79.01 Long term (current) use of anticoagulants
CPT/HCPCS: 36415; 85610

== ENCOUNTER → 2024-01-14 10:33 | Outpatient (REF) | payer OTHER, SELFPAY ==
[2024-01-14 12:24] LABS: % Basophils 0.5 % (0-2); % Eosinophils 5.7 % (0-6); % Immature Granulocytes 0.2 % (0-0.5); % Lymphocytes 26.8 % (20.5-51.1); % Monocytes 13.3 % (1.7-9.3); % Neutrophils 53.5 % (42.2-75.2); Absolute Eosinophils 0.3 10^3/uL (0-0.7); Absolute Lymphocytes 1.5 10^3/uL (1.2-3.4); Absolute Monocytes 0.8 10^3/uL (0.1-0.6); Hematocrit 37.2 % (39.0-52.0); Hemoglobin 12.4 g/dL (13.0-18.0); Mean Corp Hgb Conc. 33.3 g/dL (33.0-37.0); Mean Corpuscular Hgb 28.9 pg (27.0-31.0); Mean Corpuscular Volume 86.7 fL (80.0-94.0); Mean Platelet Volume 10.4 fL (7.4-10.4); Nucleated Red Blood Cells % 0 % (-); Platelet Count 242 10^3/uL (130-400); Red Blood Cell Count 4.29 10^6/uL (4.70-6.10); Red Cell Dist. Width 14.7 % (11.5-14.5); White Blood Cell Count 5.6 10^3/uL (4.8-10.8)
[2024-01-14 12:38] LABS: ALT (SGPT) 51 U/L (0-50); AST (SGOT) 30 U/L (17-59); Albumin 3.7 g/dl (3.5-5.0); Alkaline Phosphatase 65 U/L (38-126); Blood Urea Nitrogen 26 mg/dl (9-20); Calcium 9.4 mg/dl (8.4-10.2); Carbon Dioxide 25 mmol/L (22-30); Chloride 103 mmol/L (98-107); Glucose 97 mg/dl (70-99); Potassium 4.8 mmol/L (3.5-5.1); Sodium 136 mmol/L (135-145); Total Bilirubin 0.3 mg/dl (0.2-1.3); Total Protein 6.9 g/dl (6.3-8.2); eGFR > 60.00
[2024-01-14 12:45] LABS: C-Reactive Protein < 5.00 mg/L (0.0-10.00)
== END ==
LOC: OLABWHC 10:33
PROVIDERS: ATTENDING PHYSICIAN Family Medicine
DX: D64.9 Anemia, unspecified (principal); Z79.2 Long term (current) use of antibiotics; L03.317 Cellulitis of buttock; L89.313 Pressure ulcer of right buttock, stage 3; L89.320 Pressure ulcer of left buttock, unstageable
CPT/HCPCS: 36415; 80053; 85025; 86140

== ENCOUNTER → 2024-01-17 09:27 | Outpatient (REF) | payer OTHER, SELFPAY ==
[2024-01-17 11:43] LABS: INR 2.67; PT 28.8 Sec (11.4-14.6)
== END ==
LOC: OLABWIL 09:27
PROVIDERS: ATTENDING PHYSICIAN Nurse Practitioner Family
DX: D68.318 Other hemorrhagic disorder due to intrinsic circulating anticoagulants, antibodies, or inhibitors (principal)
CPT/HCPCS: 36415; 85610

== ENCOUNTER → 2024-02-12 13:48 | Outpatient (REF) | payer OTHER, SELFPAY ==
[2024-02-12 14:45] LABS: INR 2.14; PT 24.2 Sec (11.4-14.6)
== END ==
LOC: REG 13:48
PROVIDERS: ATTENDING PHYSICIAN Family Medicine
DX: Z79.01 Long term (current) use of anticoagulants (principal)
CPT/HCPCS: 36415; 85610

== ENCOUNTER → 2024-03-18 09:28 | Outpatient (REF) | payer OTHER, SELFPAY ==
[2024-03-18 10:40] LABS: INR 2.62
== END ==
LOC: OLABWIL 09:28
PROVIDERS: ATTENDING PHYSICIAN Family Medicine
DX: Z79.01 Long term (current) use of anticoagulants (principal)
CPT/HCPCS: 36415; 85610

== ENCOUNTER → 2024-04-15 12:59 | Outpatient (REF) | payer OTHER, SELFPAY ==
[2024-04-15 14:09] LABS: INR 2.45; PT 26.5 Sec (11.4-14.6)
== END ==
LOC: REG 12:59
PROVIDERS: ATTENDING PHYSICIAN Nurse Practitioner Family
DX: Z79.01 Long term (current) use of anticoagulants (principal)
CPT/HCPCS: 36415; 85610

== ENCOUNTER → 2024-05-13 09:23 | Outpatient (REF) | payer OTHER, SELFPAY ==
[2024-05-13 11:40] LABS: INR 2.95; PT 30.7 Sec (11.4-14.6)
== END ==
LOC: OLABWIL 09:23
PROVIDERS: ATTENDING PHYSICIAN Nurse Practitioner Family
DX: Z79.01 Long term (current) use of anticoagulants (principal)
CPT/HCPCS: 36415; 85610

== ENCOUNTER → 2024-06-10 09:24 | Outpatient (REF) | payer OTHER, SELFPAY ==
[2024-06-10 13:48] LABS: INR 2.14; PT 23.8 Sec (11.4-14.6)
== END ==
LOC: OLABWIL 09:24
PROVIDERS: ATTENDING PHYSICIAN Nurse Practitioner Family
DX: Z79.01 Long term (current) use of anticoagulants (principal)
CPT/HCPCS: 36415; 85610

== ENCOUNTER 2024-07-11 17:56 | Observation (INO) | payer OTHER, SELFPAY ==
[2024-07-11] VITALS (8 sets, daily range): BP systolic 105–169; BP diastolic 70–85; BMI 27.2; BMI 26.5
--- NOTE | 2024-07-11 13:15 | ED.GENMED ---
History of Present Illness
General
Chief Complaint: Skin Problem
Source: patient and records
Time Seen by Provider: 07/11/24 13:00
History of Present Illness
History of Present Illness:
74yoM with a history of paraplegia due to a spinal cord injury, DVT on Coumadin, chronic suprapubic catheter, and colostomy status presenting for evaluation of gluteal redness. Symptoms began about 3 weeks ago. He was seen by his PCP at symptom
onset. He was started on a course of Keflex which he took for 5 days without improvement. He went back to his PCP and was prescribed cefdinir x 1 week. He was then seen by colorectal surgery and prescribed a second week of cefdinir. His redness
seemed to improve but he started to develop redness again about 3-4 days ago. He also now has redness on his lower abdomen. He was seen by his visiting nurse today and was advised to go to the ED for evaluation. He denies any fevers or chills. Of
note, patient was hospitalized from 12/03/23-12/07/23 for gluteal cellulitis and he was discharged on 6 weeks of IV cefepime via PICC line.
Past History
Past History
ED Past Medical History: Other (Paraplegia from T6 down, Cellulitis, Decubitis ulcers, UTI's, kidney stones); Negative HTN, Hypercholesterolemia or IDDM
ED Past Surgical History: Urological (Suprapubic cath) and Other (back surgery sacral muscle flap surgery 2ndary to pressure ulcer)
Social History
Tobacco: Non-smoker
Alcohol: Occasional
Personal:
Living: alone
Employment: Retired
Family History
Family History: Other
Phy Exam
General Physical Exam
General Presentation: well appearing and no apparent distress
General Skin: warm and dry
General Habitus: normal and elderly
General Mental: alert
Cardiovascular Exam
Cardiovascular Exam: regular rate/rhythm
Pulmonary Exam
Pulmonary Exam: no respiratory distress
Gastrointestinal Exam
Gastrointestinal Exam: other (Colostomy and suprapubic catheter present)
Skin Exam
Skin Exam: warm/dry and erythema (Erythema noted to perirectal area with external hemorrhoids. There is also erythema present to the suprapubic region. No drainage, fluctuance, or crepitus. )
Psychiatric Exam
Psychiatric Exam: normal mood/affect
Course
Orders/Labs/Results
Orders:
Orders
07/11/24 Breakfast
Regular
At Your Request: Full Participation
Does patient need a safe tray?: No
Liquid Modification: Thin Liquids
07/11/24 13:14
CT Pelvis With Iv Contrast Urgent
Comment:
Reason For Exam: Gluteal and suprapubic cellulitis
07/11/24 13:25
Piperacillin/Tazo 4.5 Gram [Zosyn] 4.5 gram in 100 ml IV NOW
07/11/24 13:46
Complete Blood Count/With Diff Urgent
Comprehensive Metabolic Panel Urgent
Lactate Level [Lactic Acid] Urgent
Prothrombin Time Urgent
Blood Culture Urgent
PAULA Source: Blood/Venous
Specimen Description:
07/11/24 14:23
Blood Culture Routine
PAULA Source: Blood/Venous
Specimen Description:
07/11/24 17:36
Admit/Transfer Patient As Directed
Co-Sign Provider:
Level of Care: Observation services
Assign to:: Telemetry
Physician / Group: Veronica
Diagnosis: Cellulitis
Reason for Telemetry: Arrhythmia
Date to Stop Telemetry: 07/14/24
Time to Stop Telemetry: 11:00
Reason for Hospitalization: IV abx
Expected length of stay greater than two midnights?: Yes
ELOS- Estimated Length of Stay in days: 3
I certify the patient meets the requirements for IP care: Yes
07/11/24 17:39
PRN Pain Medication Management As Directed
May give lesser potent ordered pain med per pt: Yes
preference::
Protocol:: Medication orders for pain may be administered in a
manner that supports deferring to patient preference
when the pt is:
- Requesting an ordered lesser potent pain medication.
Least to most potent pain medications are defined
as: acetaminophen < NSAID < tramadol < opioids
(morphine, oxycodone, hydromorphone).
- Requesting a lesser dose of the same medication IF
ORDERED.
- Requesting a less intrusive route of administration
if both routes are prescribed by the provider (PO <
IV).
07/11/24 17:43
Code Status As Directed
Resuscitation Status: Full Code
07/11/24 18:44
Acetaminophen [Tylenol] 650 mg PO Q4HPRN PRN
07/11/24 18:44
Activity As Directed
Activity Level: Out of Bed- Chair
Vital Signs As Directed
Frequency: Per unit guidelines
Ot Eval And Treat Routine
Pt Eval And Treat Routine
Activity Level: Out of Bed- Ad Nora
07/11/24 19:00
Warfarin [Coumadin] 7.5 mg PO QPM
07/11/24 20:00
Clotrimazole [Lotrimin 1% Cream] See Dose Instructions TOPICAL BID
07/12/24 06:00
Basic Metabolic Panel IN AM
Complete Blood Count/No Diff IN AM
Prothrombin Time IN AM
07/13/24 06:00
Prothrombin Time IN AM
07/14/24 06:00
Prothrombin Time IN AM
07/14/24 11:00
DC Protocol for Telemetry ONCE
Abnormal Lab Results
07/11/24
13:46
RBC 4.44 L 10^6/uL
(4.70-6.10)
Hgb 12.8 L g/dL
(13.0-18.0)
MCHC 32.8 L g/dL
(33.0-37.0)
Absolute Monos (auto) 0.7 H 10^3/uL
(0.1-0.6)
Monocytes % 11.3 H %
(1.7-9.3)
PT 22.1 H Sec
(11.4-14.6)
BUN 22 H mg/dl
(9-20)
Creatinine 0.5 L mg/dL
(0.7-1.3)
Glucose 103 H mg/dl
(70-99)
07/11/24 13:46
07/11/24 13:46
Vital Signs
Initial and Last Documented VS:
Initial Vital Signs
Temp Pulse Resp BP Pulse Ox
97.9 F 58 16 169/85 98
07/11/24 12:37 07/11/24 12:37 07/11/24 12:37 07/11/24 12:37 07/11/24 12:37
Last Documented Vital Signs
Temp Pulse Resp BP Pulse Ox
97.6 F 53 20 141/78 97
07/11/24 18:52 07/11/24 18:52 07/11/24 18:52 07/11/24 18:52 07/11/24 18:52
MDM/Problems Addressed
Differential Diagnosis Includes:
74yoM here with suprapubic and perirectal redness. Gluteal redness has been present x several weeks. Has been on 3 separate courses of abx. Symptoms are recurrent and he now has suprapubic redness. No fevers/chills. Hx of paraplegia. He is non-toxic
appearing with stable vitals. There is erythema noted on exam without crepitus, drainage, or fluctuance. Differential diagnosis includes but is not limited to: cellulitis, tinea infection, NSTI
Initial ED plan: Check CBC, CMP, lactate, blood cultures, and CT pelvis. Will order dose of IV Zosyn.
*Critical Care Note
Total Time (30-74mins, 75-104mins- exclusive of procedures): Not Applicable
Update Note
Update Note:
Labs unremarkable including normal white count and lactate. CT shows cellulitis without any soft tissue gas or any evidence of a deeper infection. Will admit for further management given ongoing symptoms despite multiple rounds of outpatient abx.
ED Attending Note
-
Portions of this chart may have been created with voice recognition software.� Occasional wrong word or��sound alike� substitutions may have occurred due to the inherent limitations of voice recognition software.
Discharge Plan
Departure
Patient Disposition: Admit
Date of Disposition: 07/11/24
Time of Disposition: 16:29
Presentation/result/management discussed w/ accepting MD/DO: Hospitalist
Discharge Problem:
Cellulitis, gluteal
Interventions
Interventions:
*Risk Screen - Suicide Last Done: 07/11/24 12:37
*General Assessment Last Done: 07/11/24 12:37
*Neglect/Abuse Screening Last Done: 07/11/24 12:37
*Nursing Disposition Last Done: 07/11/24 18:44
ED-Skin Assessment Last Done: 07/11/24 13:55
Discharge Date and Time
Discharge Date/Time: 07/11/24 18:44
[2024-07-11 14:00] LABS: % Basophils 0.5 % (0-2); % Eosinophils 2.9 % (0-6); % Immature Granulocytes 0.3 % (0-0.5); % Lymphocytes 22.5 % (20.5-51.1); % Monocytes 11.3 % (1.7-9.3); % Neutrophils 62.5 % (42.2-75.2); Absolute Eosinophils 0.2 10^3/uL (0-0.7); Absolute Lymphocytes 1.4 10^3/uL (1.2-3.4); Absolute Monocytes 0.7 10^3/uL (0.1-0.6); Absolute Neutrophils 3.9 10^3/uL (1.4-6.5); Hemoglobin 12.8 g/dL (13.0-18.0); Mean Corp Hgb Conc. 32.8 g/dL (33.0-37.0); Mean Corpuscular Hgb 28.8 pg (27.0-31.0); Mean Corpuscular Volume 87.8 fL (80.0-94.0); Mean Platelet Volume 9.4 fL (7.4-10.4); Nucleated Red Blood Cells % 0 % (-); Platelet Count 283 10^3/uL (130-400); Red Blood Cell Count 4.44 10^6/uL (4.70-6.10); Red Cell Dist. Width 13.7 % (11.5-14.5); White Blood Cell Count 6.3 10^3/uL (4.8-10.8)
[2024-07-11 14:09] LABS: INR 1.95; PT 22.1 Sec (11.4-14.6)
[2024-07-11 14:14] LABS: Lactic Acid 0.9 mmol/L (0.7-2.0)
[2024-07-11 14:17] LABS: ALT (SGPT) 44 U/L (0-50); AST (SGOT) 29 U/L (17-59); Alkaline Phosphatase 69 U/L (38-126); Blood Urea Nitrogen 22 mg/dl (9-20); Calcium 9.6 mg/dl (8.4-10.2); Carbon Dioxide 23 mmol/L (22-30); Chloride 106 mmol/L (98-107); Estimated Creatinine Clearance 120 ml/min; Glucose 103 mg/dl (70-99); Potassium 4.7 mmol/L (3.5-5.1); Sodium 140 mmol/L (135-145); Total Bilirubin 0.5 mg/dl (0.2-1.3); Total Protein 6.8 g/dl (6.3-8.2); eGFR > 60.00
[2024-07-11] MEDS: ZOSYN 100 IV (14:24)
--- NOTE | 2024-07-11 17:16 | HPS.HSE ---
Family Physician
-
Family Physician: YENIFER Sage
Chief Complaint
-
Gluteal and Suprapubic Redness
History of Present Illness
Patient is 74-year-old male past medical history of paraplegia secondary to a T6 spinal cord injury, neurogenic bladder status post suprapubic tube, prior sacral/ischial wound requiring diverting colostomy, and left lower extremity DVT on
anticoagulation who presents with redness of the gluteal and suprapubic regions. Patient reports he began with gluteal redness about 3 weeks ago. He saw his primary care provider who initially prescribed him a course of Keflex. He took Keflex for
5 days without any improvement, then changed to cefdinir which he took for 1 week. He saw his colorectal surgeon who extended the course of cefdinir for an additional week which she completed over the weekend. He notes significant improvement
while on antibiotics, but symptoms then began to recur. Over the last few days he has noted redness involving the suprapubic area. Due to recurrence of symptoms he was instructed to present to the emergency department for evaluation. He denies
fever, sweats or chills.
Medical History
Past Medical History
Past Medical History: Reports Other
Additional Past Medical History:
Paraplegia due to T6 Spinal Cord Injury in 1973
Neurogenic Bladder s/p Suprapubic Tube
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
LLE DVT April 2022
Intermittent Wenckebach
Past Surgical History: Reports Other
Additional Past Surgical History:
Suprapubic Tube
Diverting Colostomy
Back Surgery
Social History
Tobacco: Non-smoker
Alcohol: Daily (1 beer)
Drug: None
Personal: Single
Living: Alone ([facility])
Family History
Family History: Not pertinent
Allergies / Home Medications
Allergies reflects when Allergies were last updated in [facility].
Home Medications with original date entered in [facility]
Allergy/Medication List:
Allergies
Allergy/AdvReac Type Severity Reaction Status Date / Time
levofloxacin [From Levaquin] Allergy tendinitis/ Verified 07/11/24 12:36
tear
Sulfa (Sulfonamide Allergy Rash / Verified 07/11/24 12:36
Antibiotics) Mouth
ulcers
sulfamethoxazole Allergy Rash / Verified 07/11/24 12:36
Mouth
ulcers
trimethoprim Allergy Unknown Verified 07/11/24 12:36
vancomycin Allergy Rash Verified 07/11/24 12:36
Home Medications
omega 1-mqw-bor-fish oil 300 mg-1,000 mg capsule (Fish Oil) 2 cap PO DAILY High cholesterol 12/14/21
vitamin A 2,400 mcg capsule 8,000 unit PO DAILY Supplement 01/31/22
vitamin E (dl, acetate) 45 mg (100 unit) capsule 100 units PO DAILY Supplement 01/31/22
ascorbic acid (vitamin C) 500 mg tablet (Vitamin C) 1,000 mg PO BID Supplement 04/27/23
d-mannose 500 mg capsule 500 mg PO DAILY Supplement 04/27/23
vitamin B complex 1 tab PO DAILY Supplement 04/27/23
warfarin 5 mg tablet 7.5 mg PO QPM Blood Clot Prevention/Tx 12/03/23
Lactobac no.2-Bifidobac no.1-S. thermo 112.5 billion cell capsule (Visbiome) 1 cap PO DAILY probiotic 07/11/24
cholecalciferol (vitamin D3) 50 mcg (2,000 unit) tablet 2,000 units PO DAILY Supplement 07/11/24
magnesium oxide 400 mg PO DAILY Supplement 07/11/24
Review of Systems
-
A 12 point ROS was completed and negative except as noted: Yes
Constitutional: Denies Fever or Chills
Respiratory: Denies Cough or Trouble Breathing
Cardiac: Denies Chest Pain or Palpitations
Physical Exam
Vital Signs
Vital Signs
Temp Pulse Resp BP Pulse Ox
97.9 F 49 16 140/77 98
07/11/24 12:37 07/11/24 15:45 07/11/24 15:45 07/11/24 15:15 07/11/24 15:45
Physical Exam
General: Comfortable and Conversant
HEENT: NormoCephalic and Anicteric
Respiratory: Clear and Non Labored Respirations
Cardiac: S1/S2, Regular Rhythm and Bradycardia (Occasionally)
GI: Soft, Non Tender and Ostomy
Rectal: Hemorrhoids (Large hemorrhoids with small amount of epithelial breakdown)
Genito-urinary: Suprapubic Tube
Skin: Warm, Dry and Rash (Suprapubic and bilateral groin area are erythematous with satellite lesions noted on bilateral thighs and lower abdomen)
Neuro: Awake, Alert, Oriented and Nonfocal/grossly intact
Psych: Calm
Laboratory Results
-
07/11/24 13:46
07/11/24 13:46
Laboratory Results
PT 22.1 Sec (11.4-14.6) H 07/11/24 13:46
INR 1.95 07/11/24 13:46
Lactic Acid 0.9 mmol/L (0.7-2.0) 07/11/24 13:46
Total Bilirubin 0.5 mg/dl (0.2-1.3) 07/11/24 13:46
AST 29 U/L (17-59) 07/11/24 13:46
ALT 44 U/L (0-50) 07/11/24 13:46
Alkaline Phosphatase 69 U/L (38-126) 07/11/24 13:46
Data Reviewed
-
Lab Data: Labs Reviewed by me
Impression/Plan
-
Suprapubic Cellulitis appears fungal
-Start Clotrimazole cream
-Hold on further antibiotics -Consider restarting if no improvement with fungal treatment
LLE DVT April 2022
-Continue Coumadin
-Monitor INR
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
-Monitor on Telemetry
Paraplegia due to T6 Spinal Cord Injury in 1973
-Wheelchair bound
Neurogenic Bladder s/p Suprapubic Tube
-Suprapubic tube exchanged 07/10 per patient
--- NOTE | 2024-07-11 18:36 | W.PN.UPDATE ---
Update Note
Progress Note Update
This is an addendum to the H&P written by Kemi Espinoza on 07/11/2024. Patient seen and examined independently with PA.
74-year-old male past medical history of T6 spinal cord injury with paraplegia in 1973, chronic sacral wound with sinus tract, ischial wound requiring diverting colostomy in 2021, suprapubic catheter, DVT on Coumadin, presenting with redness of the
gluteal region. This originally started 3 weeks ago and treated with Keflex then cefdinir with improvement.
He reports that the redness did not get worse. He subsequently developed redness in the suprapubic/groin area.
On examination there is erythema surrounding the sacral decubitus sinus tract. No surrounding warmth. No discharge visible. No leukocytosis or fever. Patient was given Zosyn. Will hold off on further antibiotics. Wound care consulted.
There is also tinea cruris likely due to recent antibiotic use. Clotrimazole cream.
--- NOTE | 2024-07-11 18:50 | PTCARENOTE ---
Received pt from ER via stretcher,accompanied by ER staff. Pt AAO x3, moves arms well, pt paraplegic; states no sensation/movement from mid-chest to feet. Pt transferred to bed with assist x4. VSS. Telemetry applied; SB to 30's at times; first
degree AVB. On room air- pulse ox 97%, no SOB noted. Abd obese, soft; colostomy patent soft brown stool; large stoma. SPT to leg bag draining yellow urine. Pt with reddened areas lower abd/perineum; scabbed areas on Lt lower leg. Oriented to
4East, currently resting quietly. Will continue to monitor.
[2024-07-11] MEDS: COUMADIN 7.5 MG PO (19:37)
[2024-07-11] MEDS: LOTRIMIN 1% CREAM 1 APPLIC TOPICAL (19:47)
--- NOTE | 2024-07-11 21:51 | PTCARENOTE ---
Pt has been bradycardic w/ 1st degree block as low in the 30's. Pt is asymptomatic. 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 Will continue w/ tx plan
[2024-07-12] VITALS (8 sets, daily range): BP systolic 93–137; BP diastolic 63–78
[2024-07-12 05:40] LABS: Hematocrit 39.5 % (39.0-52.0); Hemoglobin 13.1 g/dL (13.0-18.0); Mean Corp Hgb Conc. 33.2 g/dL (33.0-37.0); Mean Corpuscular Volume 90.6 fL (80.0-94.0); Mean Platelet Volume 9.7 fL (7.4-10.4); Platelet Count 258 10^3/uL (130-400); Red Blood Cell Count 4.36 10^6/uL (4.70-6.10); Red Cell Dist. Width 13.9 % (11.5-14.5); White Blood Cell Count 5.4 10^3/uL (4.8-10.8)
[2024-07-12 05:43] LABS: INR 1.93; PT 21.9 Sec (11.4-14.6)
[2024-07-12 05:54] LABS: Blood Urea Nitrogen 21 mg/dl (9-20); Calcium 9.5 mg/dl (8.4-10.2); Carbon Dioxide 23 mmol/L (22-30); Chloride 106 mmol/L (98-107); Estimated Creatinine Clearance 120 ml/min; Glucose 98 mg/dl (70-99); Sodium 141 mmol/L (135-145); eGFR > 60.00
[2024-07-12] MEDS: LOTRIMIN 1% CREAM 1 APPLIC TOPICAL ×2 (08:56→20:33)
--- NOTE | 2024-07-12 10:53 | W.PN.HOSP.TC ---
Today's Communication/Plan
-
consult CRS
Assessment / Plan
Assessment / Plan
Large hemorrhoids with ongoing bleeds-seems to be persistent. Patient on anticoagulation with Coumadin with INR of 9.3. History of DVT. Will consult colorectal surgery.
Bilateral groin and lower abdominal rash suspected secondary candidal rash
We will treat him with antifungal and steroid cream. If no improvement will start on oral fluconazole.
-Hold on further antibiotics .
LLE DVT April 2022
-Continue Coumadin
-Monitor INR
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
-Monitor on Telemetry
Paraplegia due to T6 Spinal Cord Injury in 1973
-Wheelchair bound
Neurogenic Bladder s/p Suprapubic Tube
-Suprapubic tube exchanged 07/10 per patient
Anticipated Discharge: > 48 hours
Subjective/Interval History
-
Date of Service: July 12, 2024
Patient states he was sent in by the nurse because of ongoing hemorrhoidal bleeding and rectal discharge and as well as a significant rash in bilateral groins and the lower abdomen.
No fever or chills.
He does not have any rectal pain as he is paraplegic and has no sensation there.
No fever or chills.
Objective Data
-
Labs:
Laboratory Results
07/12/24
04:27
WBC 5.4
Hgb 13.1
Hct 39.5
Plt Count 258
PT 21.9 H
INR 1.93
Sodium 141
Potassium 5.0
Chloride 106
Carbon Dioxide 23
BUN 21 H
Creatinine 0.6 L
Glucose 98
Calcium 9.5
Vital Signs:
Vital Signs
Temp Pulse Resp BP Pulse Ox
97.7 F 58 18 104/65 95
07/12/24 08:09 07/12/24 08:09 07/12/24 08:09 07/12/24 08:09 07/12/24 08:09
I&O
07/11/24 07/12/24 07/13/24
06:59 06:59 06:59
Intake Total 120 / 120
Output Total 1700 / 1700 350 / 350
Balance -1580 / -1580 -350 / -350
Review of Systems
-
Respiratory: Denies Trouble Breathing
Cardiac: Denies Chest Pain
Abdomen/GI: Denies Abdominal Pain, Nausea or Vomiting
Neuro: Denies Dizzy
Physical Exam
-
General: No Apparent Distress
HEENT: Moist Mucous Membranes
Respiratory: Non Labored Respirations; Negative Accessory Resp Muscle Use
Cardiac: Regular Rhythm and S1/S2
GI: Soft, Nontender, Normal Bowel Sounds, Ostomy and Other (Bilateral groin and lower abdomen cutaneous candidiasis)
Rectal: Hemorrhoids (large bleeding hemorrhoids)
Neuro: AO x 3; Negative No Motor Deficits (paraplegia)
Psych: Calm
Data Reviewed
-
Labs: Labs Reviewed by me
[2024-07-12] MEDS: VISBIOME 1 CAP PO (13:05)
--- NOTE | 2024-07-12 14:35 | CON.CRS ---
Medical History
-
Chief Complaint: bleeding hemorrhoids
History of Present Illness:
74 yo male with a h/o paraplegia after t6 spinal injury in 1973, neurogenic bladder managed with chronic SPT, ischial/sacral decubs with debridements and diverting colostomy creation in December 2021, and a LLE dvt in May 2022 now on chronic
warfarin who presents with gluteal redness and local irritation to the abdomen and pubic area for which he was on outpatient antibiotics for about 2 weeks from his PCP without much benefit. He is seen today in consult for rectal bleeding. He was
recently seen in the outpatient setting by Dr Fowler on 06/26/24 for evaluation of hemorrhoids with rectal prolapse noted at that time as well as well as stage 2 decubitus sacral ulcer. He was provided with hydrocortisone cream at that time for
symptomatic relief with improvement noted today on exam.
Past Medical History
Past Medical History: Arrhythmias (Mobitz 1 Block) and Other (Paraplegia due to T6 Spinal Cord Injury in 1973, Neurogenic Bladder s/p Suprapubic Tube Chronic, Sacral / Ischial wound requiring diverting colostomy in December 2021, LLE DVT April 2022
on warfarin)
Past Surgical History: Orthopedic (spinal), Urological (SPT) and Other (Diverting Colostomy 12/[address] Tabares, Left Ischial Wound debridements by Dr. Colbert)
Social History
Tobacco: Non-Smoker
Alcohol: Daily (beer)
Living: Other ([facility])
Family History
Family History: Reviewed & Not Pertinent
Allergies / Home Medications
Allergy/AdvReac Type Severity Reaction Status Date / Time
levofloxacin [From Levaquin] Allergy tendinitis/ Verified 07/11/24 12:36
tear
Sulfa (Sulfonamide Allergy Rash / Verified 07/11/24 12:36
Antibiotics) Mouth
ulcers
sulfamethoxazole Allergy Rash / Verified 07/11/24 12:36
Mouth
ulcers
trimethoprim Allergy Unknown Verified 07/11/24 12:36
vancomycin Allergy Rash Verified 07/11/24 12:36
�Medication �Instructions �Recorded �Confirmed �Type
omega 6-ras-uek-fish oil 300 2 cap PO DAILY High cholesterol 12/14/21 07/11/24 History
mg-1,000 mg capsule (Fish Oil)
vitamin A 2,400 mcg capsule 8,000 unit PO DAILY Supplement 01/31/22 07/11/24 History
vitamin E (dl, acetate) 45 mg (100 100 units PO DAILY Supplement 01/31/22 07/11/24 History
unit) capsule
ascorbic acid (vitamin C) 500 mg 1,000 mg PO BID Supplement 04/27/23 07/11/24 History
tablet (Vitamin C)
d-mannose 500 mg capsule 500 mg PO DAILY Supplement 04/27/23 07/11/24 History
vitamin B complex 1 tab PO DAILY Supplement 04/27/23 07/11/24 History
warfarin 5 mg tablet 7.5 mg PO QPM Blood Clot 12/03/23 07/11/24 History
Prevention/Tx
Lactobac no.2-Bifidobac no.1-S. 1 cap PO DAILY probiotic 07/11/24 07/11/24 History
thermo 112.5 billion cell capsule
(Visbiome)
cholecalciferol (vitamin D3) 50 2,000 units PO DAILY Supplement 07/11/24 07/11/24 History
mcg (2,000 unit) tablet
magnesium oxide 400 mg PO DAILY Supplement 07/11/24 07/11/24 History
Review of Systems
-
History Source: Patient
All other systems: Negative unless noted
A 10 point review of systems was completed, and was negative except as per HPI.
Physical Exam
Vital Signs
Temp 98 F 07/12/24 12:01
Pulse 55 07/12/24 12:01
Resp Rate 18 07/12/24 12:01
Blood pressure 133/78 07/12/24 12:01
SaO2 95 07/12/24 13:42
07/11/24 07/12/24 07/13/24
06:59 06:59 06:59
Actual Weight 88.621 kg
Body Mass Index (BMI) 26.5
Lab Results / Allergies
07/12/24 04:27
07/12/24 04:27
WBC 5.4 10^3/uL (4.8-10.8) 07/12/24 04:27
Hgb 13.1 g/dL (13.0-18.0) 07/12/24 04:27
Hct 39.5 % (39.0-52.0) 07/12/24 04:27
Plt Count 258 10^3/uL (130-400) 07/12/24 04:27
Abs Immat Gran (auto) 0.0 10^3/uL (0-0.05) 07/11/24 13:46
Neutrophils % 62.5 % (42.2-75.2) 07/11/24 13:46
Allergy/AdvReac Type Severity Reaction Status Date / Time
levofloxacin [From Levaquin] Allergy tendinitis/ Verified 07/11/24 12:36
tear
Sulfa (Sulfonamide Allergy Rash / Verified 07/11/24 12:36
Antibiotics) Mouth
ulcers
sulfamethoxazole Allergy Rash / Verified 07/11/24 12:36
Mouth
ulcers
trimethoprim Allergy Unknown Verified 07/11/24 12:36
vancomycin Allergy Rash Verified 07/11/24 12:36
Physical Exam
General: No Apparent Distress
HEENT: Moist Mucous Membranes
GI: Soft, Non Tender, Non Distended and Other (stoma pink/viable, appliance with stool/flatus)
Rectal: Hemorrhoids (prolapsed internal hemorrhoids with minimal oozing present)
Genito-urinary: Other (SPT with clear yellow urine )
Skin: Warm, Dry and Other (Sacral stage 2 decubitus, tinea corporis from around the level of the naval down to the pelvis and perineum and around to the buttocks )
Neuro: Awake, Alert and AO x 3
Psych: Calm
Data Reviewed
-
CT Scan: Image Personally Visualized and interpreted, Report Reviewed by me, Discussed with Physician and Discussed with Patient
Labs: Labs Reviewed by me, Discussed with Physician and Discussed with Patient
Old Records: Reviewed
Assessment / Plan
-
74 yo male with h/o T6 spinal injury and paraplegia, neurogenic bladder managed with chronic SPT, ischial/sacral decubs with local debridements as well as a diverting colostomy creation in December 2021 with LLE dvt in May 2022 now on chronic
warfarin admitted for management of tinea corporis to the abdomen/peritoneum/buttocks seen in consult today for evaluation of bleeding hemorrhoids. No leukocytosis, hemoglobin is stable. AFVSS. Hemorrhoids improved since last exam on 06/26/24.
--Start Anusol suppository BID with hydrocortisone cream externally to exposed hemorrhoids BID as well
--Coumadin on hold for tonight, ok to resume tomorrow if improvement noted
--Trend CBC
--Medical management of large fungal rash as per primary team with topical agents: consider IV fluconazole given the extent of the rash
--Wound care consult
[2024-07-12] MEDS: ANUSOL HC 25 MG RECTAL (20:32)
[2024-07-12] MEDS: DIPROSONE CREAM 0.05% 1 APPLIC TOPICAL (20:33)
[2024-07-12] MEDS: HYDROCORTISONE 2.5% CREAM 1 APPLIC TOPICAL (20:33)
[2024-07-13 03:09] VITALS: BP 132/73
[2024-07-13 07:02] LABS: Hematocrit 40.6 % (39.0-52.0); Hemoglobin 13.5 g/dL (13.0-18.0); Mean Corp Hgb Conc. 33.3 g/dL (33.0-37.0); Mean Corpuscular Hgb 29.3 pg (27.0-31.0); Mean Corpuscular Volume 88.3 fL (80.0-94.0); Mean Platelet Volume 9.5 fL (7.4-10.4); Platelet Count 289 10^3/uL (130-400); Red Cell Dist. Width 13.8 % (11.5-14.5); White Blood Cell Count 6.9 10^3/uL (4.8-10.8)
[2024-07-13 07:08] LABS: INR 1.92; PT 21.8 Sec (11.4-14.6)
[2024-07-13 07:55] VITALS: BP 103/63
[2024-07-13] MEDS: VITAMIN D3 (cholecalciferol) 50 MCG PO (08:42)
[2024-07-13] MEDS: MAGNESIUM OXIDE 500 MG PO (08:42)
[2024-07-13] MEDS: VISBIOME 1 CAP PO (08:42)
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
--- NOTE | 2024-07-13 09:20 | W.PN.HOSP.TC ---
Addendum entered and electronically signed by Beka Celis MD 07/13/24 13:53:
QTc is ok
Sinus grecia with PAC noted. Pt with normal EF ; he had Holter end of last year -noted to have sinus grecia ,PAC and PVCs then .No pauses or syncope.
Original Note:
Today's Communication/Plan
-
DC planning
Assessment / Plan
Assessment / Plan
Large hemorrhoids with bleeding-None today . Seems to be related to chaffing from tranfer board use. HH remains stable. seen by colorectal surgery who recommended steroid cream and suppository. Coumadin was kept on hold yesterday.
Patient on anticoagulation with Coumadin with INR of 1.9. History of DVT. If no plan for surgery will resume AC. Pt preferred Warfarin over DOAC. Gettings monthly INR at his facility
Bilateral groin and lower abdominal rash suspected secondary candidal rash
started antifungal and steroid cream.
Since the majority of the candidal rash is center in the fold around SPT will add 7 day of oral fluconazole as well. Check EKG. Follow INR closely while on it.
LLE DVT April 2022
-Resume Coumadin-No plans for surgery
-Monitor INR
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
-Monitor on Telemetry
Paraplegia due to T6 Spinal Cord Injury in 1973
-Wheelchair bound
Neurogenic Bladder s/p Suprapubic Tube
-Suprapubic tube exchanged 07/10 per patient
DC if no plans for any surgical interventions
Anticipated Discharge: Today
Subjective/Interval History
-
Date of Service: July 13, 2024
No further hemorrhoidal bleeding noted.
Objective Data
-
Labs:
Laboratory Results
07/13/24
05:50
WBC 6.9
Hgb 13.5
Hct 40.6
Plt Count 289
PT 21.8 H
INR 1.92
Vital Signs:
Vital Signs
Temp Pulse Resp BP Pulse Ox
97.8 F 62 14 103/63 96
07/13/24 07:55 07/13/24 07:55 07/13/24 07:55 07/13/24 07:55 07/13/24 07:55
I&O
07/12/24 07/13/24 07/14/24
06:59 06:59 06:59
Intake Total 120 / 120 1560 / 1560
Output Total 1700 / 1700 3175 / 3175
Balance -1580 / -1580 -1615 / -1615
Review of Systems
-
Constitutional: Denies Fever
Respiratory: Denies Trouble Breathing
Cardiac: Denies Chest Pain
Abdomen/GI: Denies Abdominal Pain, Nausea or Vomiting
Neuro: Denies Dizzy
Physical Exam
-
General: Comfortable
Respiratory: Non Labored Respirations; Negative Accessory Resp Muscle Use
Cardiac: Regular Rhythm and S1/S2
GI: Soft
Neuro: AO x 3; Negative No Motor Deficits (paraplegia)
Psych: Calm; Negative Confused
Data Reviewed
-
Labs: Labs Reviewed by me
[2024-07-13] MEDS: ANUSOL HC 25 MG RECTAL ×2 (09:21→19:58)
[2024-07-13] MEDS: DIPROSONE CREAM 0.05% 1 APPLIC TOPICAL ×2 (09:21→19:59)
[2024-07-13] MEDS: LOTRIMIN 1% CREAM 1 APPLIC TOPICAL ×2 (09:22→20:00)
[2024-07-13] MEDS: HYDROCORTISONE 2.5% CREAM 1 APPLIC TOPICAL ×2 (09:22→19:59)
--- NOTE | 2024-07-13 10:57 | CM ---
Addendum entered by Kenzie Farris 07/13/24 16:05:
patient unable to access wheelchair van or transportation from [place]. physician updated and plan for discharge tomorrow.
Addendum entered by Kenzie Farris 07/13/24 14:02:
requested consult for VN from Physician.
Addendum entered by Kenzie Farris 07/13/24 14:01:
patient will have [facility], referral sent and accepted please fax to [phone].
Original Note:
Patient seen at bedside. Patient stated he recognized CM. Patient reviewed OBS/MATA status form and signed form placed on chart. Patient states that he lives in independent living at [place] and is independent with wheelchair and transfers. Per
Patient plan is to return to apartment when medically appropriate. CM will confirm PCP and follow for PT/OT assessment/recommendations. CM will continue to follow for discharge planning needs.
Plan; return to apartment when medically appropriate at [place]. watch for possible VN needs.
[2024-07-13 11:11] VITALS: BP 109/61
--- NOTE | 2024-07-13 13:50 | W.DS.TRANS ---
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
-
Discharge Instructions:
Discharge Diagnosis/Procedures Hemorrhoidal bleeding; large area of candidal
rash in the groin and the lower abdomen
Diet Regular
Activity As tolerated
Driving Restrictions As prior to admission
Blood Work INR mid next week on sunday
Instructions:
Stand-Alone Forms:
Changes to Home Medications: Yes
Discharge Medications:
DC Medications w/original date entered in [facility]
omega 0-omg-ors-fish oil 300 mg-1,000 mg capsule (Fish Oil) 2 cap PO DAILY High cholesterol 12/14/21
vitamin A 2,400 mcg capsule 8,000 unit PO DAILY Supplement 01/31/22
vitamin E (dl, acetate) 45 mg (100 unit) capsule 100 units PO DAILY Supplement 01/31/22
ascorbic acid (vitamin C) 500 mg tablet (Vitamin C) 1,000 mg PO BID Supplement 04/27/23
d-mannose 500 mg capsule 500 mg PO DAILY Supplement 04/27/23
vitamin B complex 1 tab PO DAILY Supplement 04/27/23
warfarin 5 mg tablet 7.5 mg PO QPM Blood Clot Prevention/Tx 12/03/23
Lactobac no.2-Bifidobac no.1-S. thermo 112.5 billion cell capsule (Visbiome) 1 cap PO DAILY probiotic 07/11/24
cholecalciferol (vitamin D3) 50 mcg (2,000 unit) tablet 2,000 units PO DAILY Supplement 07/11/24
magnesium oxide 400 mg PO DAILY Supplement 07/11/24
clotrimazole 1 % topical cream (Athlete's Foot (clotrimazole)) 1 applic topical BID #30 grams 07/13/24
fluconazole 100 mg tablet 100 mg PO DAILY #6 tabs 07/13/24
hydrocortisone 2.5 % topical cream 1 applic topical BID #20 grams 07/13/24
hydrocortisone acetate 25 mg rectal suppository 25 mg [place] BID #10 ea 07/13/24
Home Medication Changes
new medication-Anusol, fluconazole, clotrimazole topical cream
Pending Results: No
--- NOTE | 2024-07-13 13:57 | W.DCSUMMARY ---
Discharge Summary
Discharge Data
Date of Admission: 07/11/24
Date of Discharge: 07/13/24
-
Pending Results: No
Hospital Course
primary diagnosis:
Large hemorrhoids with bleeding
Bilateral groin and lower abdominal rash suspected secondary candidal rash
Secondary diagnosis:
History of deep and thrombosis in 2021
Paraplegia secondary to T6 spinal cord injury 1973
Neurogenic bladder status post appropriate catheter
Diverting colostomy
Hospital course:
patient came in because of hemorrhoidal bleed and extensive rash in the groins and the lower abdomen.
Patient has paraplegia and wheelchair-bound. He does his own transfers. He has been dealing with hemorrhoids and was following with colorectal surgery. He had more bleeding before presentation and also the visiting nurse was concerned about the
extensive rash.
He has a large hemorrhoids but no thrombosis. His bleeding was intermittent especially noted during the transfers on the transfer board which i suspect is sec to chafing during transfers. Was seen by colorectal surgery who recommended steroid
suppositories and topical steroid cream and but no surgical intervention. His INR 1.93.
his rash was extensive including bilateral groins and the lower abdomen, it was scaly and clinically looking like cutaneous candidiasis. Because the area is large and involves around the suprapubic tube ,concerned about chance of candidal bladder
infection; he was not only put on topicals but also given a week of fluconazole for treatments. QTc was ok.
Consultants on board:
Colorectal surgery-Ty Jean
Discharge Plan
-
Patient Disposition: Assisted Living
Discharge Diagnosis/Procedures: Hemorrhoidal bleeding; large area of candidal rash in the groin and the lower abdomen
Diet: Regular
Activity: As tolerated
Driving Restrictions: As prior to admission
Blood Work: INR mid next week on sunday
Referrals:
Elías Tabares MD [Active] - in three to four weeks
Leyla Patel CRNP [Family Provider] - in less than 1 week
Prescriptions:
New
hydrocortisone acetate 25 mg Suppository
25 mg [place] BID Qty: 10 0RF
hydrocortisone 2.5 % Cream
1 applic topical BID Qty: 20 0RF
Rx Instructions:
To hemorrhoids
clotrimazole [Athlete's Foot (clotrimazole)] 1 % Cream
1 applic topical BID Qty: 30 0RF
Rx Instructions:
BL groin and lower abdomen area for a week
fluconazole 100 mg tablet
100 mg PO DAILY Qty: 6 0RF
Continued
omega 9-yvp-zvn-fish oil [Fish Oil] 1 EACH capsule
2 cap PO DAILY
vitamin A 8,000 UNIT capsule
8,000 unit PO DAILY
vitamin E (dl, acetate) 100 UNITS capsule
100 units PO DAILY
vitamin B complex Tablet
1 tab PO DAILY
d-mannose 500 mg Capsule
500 mg PO DAILY
ascorbic acid (vitamin C) [Vitamin C] 500 MG tablet
1,000 mg PO BID
warfarin 5 mg tablet
7.5 mg PO QPM
Visbiome 112.5 billion cell Capsule
1 cap PO DAILY
magnesium oxide 400 mg magnesium Tablet
400 mg PO DAILY
cholecalciferol (vitamin D3) 2,000 UNITS tablet
2,000 units PO DAILY
Discharge Orders:
Discharge Patient (As Directed); Ordered 07/13/24
Ordered By: Beka Celis
Discharge Date and Time
Print Language: OCCITAN
[2024-07-13 15:00] VITALS: BP 153/80
[2024-07-13] MEDS: DIFLUCAN 200 MG PO (15:39)
[2024-07-13] MEDS: COUMADIN 7.5 MG PO (18:57)
[2024-07-13 19:04] VITALS: BP 115/72
[2024-07-13 23:11] VITALS: BP 105/62
[2024-07-14 03:16] VITALS: BP 110/66
[2024-07-14 07:30] VITALS: BP 139/81
[2024-07-14 07:49] LABS: INR 1.79; PT 20.7 Sec (11.4-14.6)
[2024-07-14] MEDS: VISBIOME 1 CAP PO (07:54)
[2024-07-14] MEDS: MAGNESIUM OXIDE 500 MG PO (07:54)
[2024-07-14] MEDS: VITAMIN D3 (cholecalciferol) 50 MCG PO (07:54)
[2024-07-14] MEDS: ANUSOL HC 25 MG RECTAL (09:07)
[2024-07-14] MEDS: LOTRIMIN 1% CREAM 1 APPLIC TOPICAL (09:08)
[2024-07-14] MEDS: HYDROCORTISONE 2.5% CREAM 1 APPLIC TOPICAL (09:08)
[2024-07-14] MEDS: DIPROSONE CREAM 0.05% 1 APPLIC TOPICAL (09:09)
--- NOTE | 2024-07-14 10:43 | CM ---
MD entered order for discharge.
Spoke with pt he said that he will tell his family he is discharged.
Pt said he has set up a ride from [place] to take him back today.
Spoke with Etta from [facility] she accepted pt for VN resumption.
PLAN Return to Independent living at [place] with [facility] VN fax [phone]
== END 2024-07-14 12:19 | disposition home health service (06) ==
LOC: 4 EAST ACU 17:56
PROVIDERS: Physician Assistant; Physician Assistant Medical; Registered Nurse; ADMITTING PHYSICIAN Hospitalist; ATTENDING PHYSICIAN Family Medicine; CONSULT PHYSICIAN Surgery; EMERGENCY PHYSICIAN Emergency Medicine; FAMILY PHYSICIAN Nurse Practitioner Family
DX: K64.4 Residual hemorrhoidal skin tags (principal); K62.5 Hemorrhage of anus and rectum; G82.20 Paraplegia, unspecified; R21 Rash and other nonspecific skin eruption; L89.152 Pressure ulcer of sacral region, stage 2; L03.311 Cellulitis of abdominal wall; K62.3 Rectal prolapse; R00.1 Bradycardia, unspecified; I44.1 Atrioventricular block, second degree; N31.9 Neuromuscular dysfunction of bladder, unspecified; B37.2 Candidiasis of skin and nail; B35.4 Tinea corporis; T14.8XXS Other injury of unspecified body region, sequela; X58.XXXS Exposure to other specified factors, sequela; Z93.3 Colostomy status; Z86.718 Personal history of other venous thrombosis and embolism; Z79.01 Long term (current) use of anticoagulants; Z87.440 Personal history of urinary (tract) infections; Z87.442 Personal history of urinary calculi; Z88.1 Allergy status to other antibiotic agents; Z88.2 Allergy status to sulfonamides; Z99.3 Dependence on wheelchair; Z93.50 Unspecified cystostomy status
CPT/HCPCS: 72193; 80048; 80053; 83605; 85025; 85027; 85610; 87040; 93005; 96365; 97162; 97166; 99285; G0378; Q9967

== ENCOUNTER → 2024-07-23 15:19 | Outpatient (REF) | payer OTHER, SELFPAY ==
[2024-07-23 16:41] LABS: INR 4.42; PT 42.9 Sec (11.4-14.6)
== END ==
LOC: REG 15:19
PROVIDERS: ATTENDING PHYSICIAN Nurse Practitioner Family
DX: L89.159 Pressure ulcer of sacral region, unspecified stage (principal); G82.21 Paraplegia, complete; D68.318 Other hemorrhagic disorder due to intrinsic circulating anticoagulants, antibodies, or inhibitors
CPT/HCPCS: 36415; 85610

== ENCOUNTER → 2024-07-29 08:28 | Outpatient (REF) | payer OTHER, SELFPAY ==
[2024-07-29 09:57] LABS: % Basophils 0.3 % (0-2); % Immature Granulocytes 0.4 % (0-0.5); % Lymphocytes 27.1 % (20.5-51.1); % Monocytes 14.5 % (1.7-9.3); % Neutrophils 54.7 % (42.2-75.2); Absolute Eosinophils 0.2 10^3/uL (0-0.7); Absolute Lymphocytes 2.2 10^3/uL (1.2-3.4); Absolute Monocytes 1.2 10^3/uL (0.1-0.6); Absolute Neutrophils 4.4 10^3/uL (1.4-6.5); Hematocrit 38.1 % (39.0-52.0); Hemoglobin 12.4 g/dL (13.0-18.0); Mean Corp Hgb Conc. 32.5 g/dL (33.0-37.0); Mean Corpuscular Hgb 28.5 pg (27.0-31.0); Mean Corpuscular Volume 87.6 fL (80.0-94.0); Mean Platelet Volume 9.7 fL (7.4-10.4); Nucleated Red Blood Cells % 0 % (-); Platelet Count 333 10^3/uL (130-400); Red Blood Cell Count 4.35 10^6/uL (4.70-6.10); Red Cell Dist. Width 13.2 % (11.5-14.5)
[2024-07-29 10:00] LABS: INR 2.28
== END ==
LOC: OLABWIL 08:28
PROVIDERS: ATTENDING PHYSICIAN Nurse Practitioner Family
DX: I48.91 Unspecified atrial fibrillation (principal)
CPT/HCPCS: 36415; 85025; 85610

== ENCOUNTER → 2024-08-05 09:18 | Outpatient (REF) | payer OTHER, SELFPAY ==
[2024-08-05 10:44] LABS: INR 2.33; PT 25.5 Sec (11.4-14.6)
== END ==
LOC: OLABWIL 09:18
PROVIDERS: ATTENDING PHYSICIAN Nurse Practitioner Family
DX: I48.91 Unspecified atrial fibrillation (principal)
CPT/HCPCS: 36415; 85610

== ENCOUNTER → 2024-09-02 10:32 | Outpatient (REF) | payer OTHER, SELFPAY ==
[2024-09-02 11:41] LABS: INR 2.93; PT 30.5 Sec (11.4-14.6)
== END ==
LOC: OLABWIL 10:32
PROVIDERS: ATTENDING PHYSICIAN Nurse Practitioner Family
DX: Z79.01 Long term (current) use of anticoagulants (principal)
CPT/HCPCS: 36415; 85610

== ENCOUNTER → 2024-10-07 09:09 | Outpatient (REF) | payer OTHER, SELFPAY ==
[2024-10-07 10:38] LABS: INR 2.42; PT 26.4 Sec (11.4-14.6)
== END ==
LOC: OLABWIL 09:09
PROVIDERS: ATTENDING PHYSICIAN Nurse Practitioner Family
DX: I48.91 Unspecified atrial fibrillation (principal); Z79.01 Long term (current) use of anticoagulants
CPT/HCPCS: 85610

== ENCOUNTER → 2024-11-04 09:27 | Outpatient (REF) | payer OTHER, SELFPAY ==
[2024-11-04 14:46] LABS: INR 2.15; PT 24.5 Sec (11.4-14.6)
== END ==
LOC: OLABWIL 09:27
PROVIDERS: ATTENDING PHYSICIAN Nurse Practitioner Family
DX: Z79.01 Long term (current) use of anticoagulants (principal); I48.91 Unspecified atrial fibrillation
CPT/HCPCS: 36415; 85610

== ENCOUNTER → 2024-11-18 12:32 | Outpatient (REF) | payer OTHER, SELFPAY | LOC: WOUND 12:32 | PROVIDERS: ATTENDING PHYSICIAN Surgery; FAMILY PHYSICIAN Nurse Practitioner Family | DX: L89.322 Pressure ulcer of left buttock, stage 2 (principal); L89.892 Pressure ulcer of other site, stage 2; S91.001A Unspecified open wound, right ankle, initial encounter; G82.21 Paraplegia, complete; Z93.3 Colostomy status; X58.XXXA Exposure to other specified factors, initial encounter | CPT/HCPCS: 11042; 99203 ==

== ENCOUNTER → 2024-11-25 13:30 | Outpatient (REF) | payer OTHER, SELFPAY | LOC: WOUND 13:30 | PROVIDERS: ATTENDING PHYSICIAN Surgery; FAMILY PHYSICIAN Nurse Practitioner Family | DX: L89.322 Pressure ulcer of left buttock, stage 2 (principal); L89.892 Pressure ulcer of other site, stage 2; S91.001A Unspecified open wound, right ankle, initial encounter; G82.21 Paraplegia, complete; Z93.3 Colostomy status; X58.XXXA Exposure to other specified factors, initial encounter | CPT/HCPCS: 11042; 36415; 85025; 85610 ==

== ENCOUNTER → 2024-12-02 13:12 | Outpatient (REF) | payer OTHER, SELFPAY | LOC: WOUND 13:12 | PROVIDERS: ATTENDING PHYSICIAN Surgery; FAMILY PHYSICIAN Nurse Practitioner Family | DX: L89.322 Pressure ulcer of left buttock, stage 2 (principal); L89.892 Pressure ulcer of other site, stage 2; S91.001A Unspecified open wound, right ankle, initial encounter; G82.21 Paraplegia, complete; Z93.3 Colostomy status | CPT/HCPCS: 11042; 97597 ==

== ENCOUNTER → 2024-12-09 10:02 | Outpatient (REF) | payer OTHER, SELFPAY ==
[2024-12-09 11:43] LABS: INR 2.06; PT 23.4 Sec (11.4-14.6)
== END ==
LOC: OLABWIL 10:02
PROVIDERS: ATTENDING PHYSICIAN Nurse Practitioner Family
DX: Z79.01 Long term (current) use of anticoagulants (principal)
CPT/HCPCS: 36415; 85610

== ENCOUNTER → 2024-12-09 13:16 | Outpatient (REF) | payer OTHER, SELFPAY | LOC: WOUND 13:16 | PROVIDERS: ATTENDING PHYSICIAN Surgery; FAMILY PHYSICIAN Nurse Practitioner Family | DX: L89.322 Pressure ulcer of left buttock, stage 2 (principal); L89.892 Pressure ulcer of other site, stage 2; S91.001A Unspecified open wound, right ankle, initial encounter; G82.21 Paraplegia, complete; Z93.3 Colostomy status; X58.XXXA Exposure to other specified factors, initial encounter | CPT/HCPCS: 11042 ==

== ENCOUNTER → 2024-12-16 13:15 | Outpatient (REF) | payer OTHER, SELFPAY | LOC: WOUND 13:15 | PROVIDERS: ATTENDING PHYSICIAN Surgery; FAMILY PHYSICIAN Nurse Practitioner Family | DX: L89.322 Pressure ulcer of left buttock, stage 2 (principal); L89.892 Pressure ulcer of other site, stage 2; S91.001A Unspecified open wound, right ankle, initial encounter; G82.21 Paraplegia, complete; I87.2 Venous insufficiency (chronic) (peripheral); I73.9 Peripheral vascular disease, unspecified; Z93.3 Colostomy status; X58.XXXA Exposure to other specified factors, initial encounter | CPT/HCPCS: 11042 ==

== ENCOUNTER → 2024-12-23 13:14 | Outpatient (REF) | payer OTHER, SELFPAY | LOC: WOUND 13:14 | PROVIDERS: ATTENDING PHYSICIAN Surgery; FAMILY PHYSICIAN Nurse Practitioner Family | DX: L89.892 Pressure ulcer of other site, stage 2 (principal); S91.001A Unspecified open wound, right ankle, initial encounter; G82.21 Paraplegia, complete; I87.2 Venous insufficiency (chronic) (peripheral); I73.9 Peripheral vascular disease, unspecified; Z93.3 Colostomy status; X58.XXXA Exposure to other specified factors, initial encounter | CPT/HCPCS: 99213 ==

== ENCOUNTER → 2024-12-24 08:24 | Outpatient (REF) | payer OTHER, SELFPAY | LOC: RAD 08:24 | PROVIDERS: ATTENDING PHYSICIAN Surgery; FAMILY PHYSICIAN Nurse Practitioner Family | DX: L89.322 Pressure ulcer of left buttock, stage 2 (principal); I87.2 Venous insufficiency (chronic) (peripheral) | CPT/HCPCS: 93922; 93971 ==

== ENCOUNTER → 2024-12-30 08:12 | Outpatient (REF) | payer OTHER, SELFPAY ==
[2024-12-30 09:44] LABS: PT 24.5 Sec (11.4-14.6)
== END ==
LOC: OLABWIL 08:12
PROVIDERS: ATTENDING PHYSICIAN Nurse Practitioner Family
DX: Z79.01 Long term (current) use of anticoagulants (principal)
CPT/HCPCS: 36415; 85610

== ENCOUNTER → 2025-01-28 14:10 | Outpatient (REF) | payer OTHER, SELFPAY ==
[2025-01-28 15:50] LABS: INR 2.34; PT 26.1 Sec (11.4-14.6)
== END ==
LOC: REG 14:10
PROVIDERS: ATTENDING PHYSICIAN Nurse Practitioner Family
DX: Z79.01 Long term (current) use of anticoagulants (principal)
CPT/HCPCS: 36415; 85610

== ENCOUNTER → 2025-02-24 08:26 | Outpatient (REF) | payer OTHER, SELFPAY ==
[2025-02-24 11:19] LABS: INR 2.39; PT 26.2 Sec (11.4-14.6)
== END ==
LOC: OLABWIL 08:26
PROVIDERS: ATTENDING PHYSICIAN Nurse Practitioner Family
DX: D68.318 Other hemorrhagic disorder due to intrinsic circulating anticoagulants, antibodies, or inhibitors (principal)
CPT/HCPCS: 36415; 85610

== ENCOUNTER → 2025-03-24 12:46 | Outpatient (REF) | payer OTHER, SELFPAY ==
[2025-03-24 13:50] LABS: INR 2.78; PT 29.7 Sec (11.4-14.6)
== END ==
LOC: OLAB 12:46
PROVIDERS: ATTENDING PHYSICIAN Nurse Practitioner Family
DX: Z79.01 Long term (current) use of anticoagulants (principal)
CPT/HCPCS: 36415; 85610

== ENCOUNTER → 2025-04-21 10:04 | Outpatient (REF) | payer OTHER, SELFPAY ==
[2025-04-21 10:24] LABS: INR 2.16; PT 24.2 Sec (11.4-14.6)
== END ==
LOC: OLABWHC 10:04
PROVIDERS: ATTENDING PHYSICIAN Nurse Practitioner Family
DX: Z79.01 Long term (current) use of anticoagulants (principal)
CPT/HCPCS: 36415; 85610

== ENCOUNTER → 2025-04-22 14:25 | Outpatient (REF) | payer OTHER, SELFPAY | LOC: RAD 14:25 | PROVIDERS: ATTENDING PHYSICIAN Nurse Practitioner Family | DX: L97.919 Non-pressure chronic ulcer of unspecified part of right lower leg with unspecified severity (principal) | CPT/HCPCS: 73590 ==

== ENCOUNTER → 2025-05-19 09:36 | Outpatient (REF) | payer OTHER, SELFPAY ==
[2025-05-19 10:25] LABS: INR 1.30; PT 16.4 Sec (11.4-14.6)
== END ==
LOC: OLABWIL 09:36
PROVIDERS: ATTENDING PHYSICIAN Nurse Practitioner Family
DX: Z79.01 Long term (current) use of anticoagulants (principal)
CPT/HCPCS: 36415; 85610

== ENCOUNTER → 2025-05-26 11:00 | Outpatient (REF) | payer OTHER, SELFPAY ==
[2025-05-26 12:22] LABS: INR 1.87; PT 21.7 Sec (11.4-14.6)
== END ==
LOC: OLABWHC 11:00
PROVIDERS: ATTENDING PHYSICIAN Nurse Practitioner Family
DX: Z79.01 Long term (current) use of anticoagulants (principal)
CPT/HCPCS: 36415; 85610

== ENCOUNTER → 2025-06-09 10:37 | Outpatient (REF) | payer OTHER, SELFPAY ==
[2025-06-09 12:12] LABS: INR 2.47; PT 26.8 Sec (11.4-14.6)
== END ==
LOC: OLABWIL 10:37
PROVIDERS: ATTENDING PHYSICIAN Nurse Practitioner Family
DX: Z79.01 Long term (current) use of anticoagulants (principal)
CPT/HCPCS: 36415; 85610

== ENCOUNTER → 2025-07-07 09:36 | Outpatient (REF) | payer OTHER, SELFPAY ==
[2025-07-07 11:41] LABS: INR 1.57; PT 19.0 Sec (11.4-14.6)
== END ==
LOC: OLABWHC 09:36
PROVIDERS: ATTENDING PHYSICIAN Nurse Practitioner Family
DX: Z79.01 Long term (current) use of anticoagulants (principal)
CPT/HCPCS: 36415; 85610

== ENCOUNTER → 2025-07-22 13:45 | Outpatient (REF) | payer OTHER, SELFPAY ==
[2025-07-22 14:59] LABS: INR 1.92; PT 22.4 Sec (11.4-14.6)
== END ==
LOC: REG 13:45
PROVIDERS: ATTENDING PHYSICIAN Nurse Practitioner Family; FAMILY PHYSICIAN Family Medicine
DX: D68.318 Other hemorrhagic disorder due to intrinsic circulating anticoagulants, antibodies, or inhibitors (principal); Z79.01 Long term (current) use of anticoagulants
CPT/HCPCS: 36415; 85610

== ENCOUNTER → 2025-09-29 09:20 | Outpatient (REF) | payer OTHER, SELFPAY ==
[2025-09-29 12:28] LABS: INR 2.10; PT 23.7 Sec (11.4-14.6)
== END ==
LOC: OLABWIL 09:20
PROVIDERS: ATTENDING PHYSICIAN Nurse Practitioner Family
DX: Z92.29 Personal history of other drug therapy (principal)
CPT/HCPCS: 36415; 85610

== ENCOUNTER → 2025-11-03 09:26 | Outpatient (REF) | payer OTHER, SELFPAY ==
[2025-11-03 10:33] LABS: INR 1.82; PT 21.2 Sec (11.4-14.6)
== END ==
LOC: OLABWIL 09:26
PROVIDERS: ATTENDING PHYSICIAN Nurse Practitioner Family
DX: Z79.01 Long term (current) use of anticoagulants (principal)
CPT/HCPCS: 36415; 85610